=== PATIENT | male | born 1955 | race Two or more races ===

== ENCOUNTER 2017-06-03 18:55 | Inpatient (IN) | payer OTHER ==
[~2017-06-03] VITALS: Ht 193 cm; Wt 117.5 kg
[2017-06-03 19:56] VITALS: BP 107/72
[2017-06-03 20:00] VITALS: BP 107/76
[2017-06-03] MEDS ORDERED: PNEUMOCOCCAL VACC POLYS 25 MCG/0.5 ML VIAL IM ONE (21:00)
[2017-06-03] MEDS ORDERED: ONDANSETRON HCL 4 MG/2 ML VIAL IV PRN (21:30)
[2017-06-03] MEDS ORDERED: VANCOMYCIN PER PHARMACY 0 MG IV SCH (21:30)
[2017-06-03] MEDS ORDERED: HYDROcodone-ACET 5/325MG TAB PO PRN (21:30)
[2017-06-03] MEDS ORDERED: ACETAMINOPHEN 500 MG TAB PO PRN (21:30)
[2017-06-03 21:59] LABS: Basophils # (auto) 0.1 uL; Basophils % (auto) 1.4 % (0.0-2.0); Eosinophils # (auto) 0.3 uL; Eosinophils % (auto) 5.1 % (0.0-7.0); Hematocrit 42.4 % (41.0-53.0); Hemoglobin 14.6 g/dL (13.5-17.5); Lymphocytes # (auto) 1.8 uL; Lymphocytes % (auto) 34.5 % (10.0-50.0); Mean Corpuscular Hemoglobin 30.6 pg (28.0-32.0); Mean Corpuscular Hgb Conc. 34.5 g/dL (32.0-36.0); Mean Corpuscular Volume 88.6 fL (80.0-100.0); Mean Platelet Volume 9.1 fL (6.9-10.8); Monocytes # (auto) 0.5 uL; Monocytes % (auto) 10.5 % (0.0-12.0); Neutrophils # (auto) 2.5 uL; Neutrophils % (auto) 48.5 % (37.0-80.0); Nucleated Red Blood Cells % 0.1 %; Platelet Count (auto) 243 10^3/uL (140-450); Red Cell Distribution Width 14.4 % (11.8-14.3); White Blood Cell 5.2 10^3/uL (4.4-10.8)
[2017-06-03 22:00] VITALS: BP 107/76
[2017-06-03 22:10] LABS: Albumin 4.2 g/dL (3.4-5.0); BUN/Creatinine Ratio 14.4; Calcium 9.1 mg/dL (8.5-10.1); Potassium 4.5 mmol/L (3.5-5.1)
[2017-06-03 22:13] LABS: Bilirubin, Total 0.4 mg/dL (0.2-1.0); Total Protein 7.3 g/dL (6.4-8.2)
[2017-06-03] MEDS: FAMOTIDINE 20 MG TAB PO SCH (22:50)
[2017-06-03] MEDS: MORPHINE SULF INJ 2 MG/ML SYRINGE 1ML IV PRN (22:51)
[2017-06-03 23:20] LABS: INR 1.04 (0.9-1.15); Partial Thromboplastin Time 27.6 sec (22.64-33.71); Prothrombin Time 11.3 sec (9.37-12.3)
[2017-06-04 00:03] LABS: Urine Bilirubin Negative (Negative); Urine Blood Negative /uL (Negative); Urine Color Yellow (Yellow); Urine Glucose Normal (Normal); Urine Ketone Negative (Negative); Urine Mucus FEW (None Seen); Urine Nitrite Negative (Negative); Urine RBC 1 /hpf (0 - 3); Urine Urobilinogen Normal (Negative)
[2017-06-04] MEDS ORDERED: DEXTROSE (50%) 50ML SYRG IV PRN (00:30)
[2017-06-04] MEDS ORDERED: InsuLIN REG 1unit/0.01ml Soln (100units/ml) SC ONE (01:00)
[2017-06-04] MEDS ORDERED: ACCU-CHEK COMFORT CURVE STRIP VI ONE (01:00)
[2017-06-04] MEDS ORDERED: VANCOMYCIN 1,500 MG in D5W 5% 250 ML IV ONE (01:00)
[2017-06-04] MEDS: PIPERACILLIN-TAZOB 3.375GM 100 ML IV SCH ×3 (01:08→10:31)
[2017-06-04] MEDS: D5W/SOD CHLO 0.9% 1,000 ML IV SCH ×2 (01:08→05:30)
[2017-06-04] MEDS: NICOTINE 14 MG/24HR TOPICAL PATCH TD SCH ×3 (01:09→11:11)
[2017-06-04 05:00] VITALS: BP 95/59
[2017-06-04] MEDS: MORPHINE SULF INJ 2 MG/ML SYRINGE 1ML IV PRN ×2 (05:32→11:12)
[2017-06-04 08:29] VITALS: BP_SYST 117; BP_SYST 164; BP_DIAS 65; BP_DIAS 74
[2017-06-04] MEDS ORDERED: LIDOCAINE 1% HCL (LOCAL ANESTH.) INJ 20ML MDV ONE (08:53)
[2017-06-04] MEDS ORDERED: BUPIVACAINE 0.25% INJ 50ML VIAL ONE (08:53)
[2017-06-04 10:08] LABS: Albumin 3.9 g/dL (3.4-5.0); Bilirubin, Total 0.3 mg/dL (0.2-1.0); Calcium 8.4 mg/dL (8.5-10.1); Potassium 4.2 mmol/L (3.5-5.1); Total Protein 6.8 g/dL (6.4-8.2)
[2017-06-04] MEDS ORDERED: LACTATED RINGER'S 1,000 ML IV SCH ×2 (10:31→10:34)
[2017-06-04] MEDS: InsuLIN REG 1unit/0.01ml Soln (100units/ml) SC SCH ×2 (10:31→12:08)
[2017-06-04] MEDS: FAMOTIDINE 20 MG TAB PO SCH ×2 (10:31→11:10)
[2017-06-04] MEDS: ACCU-CHEK COMFORT CURVE STRIP VI SCH ×2 (10:31→11:14)
[2017-06-04] MEDS ORDERED: BISACODYL 5 MG EC TAB PO PRN (10:45)
[2017-06-04] MEDS ORDERED: METF-370 PO (12:26)
[2017-06-04] MEDS ORDERED: LISI10TA6 PO (12:26)
[2017-06-04] MEDS ORDERED: ALPR0.254 PO (12:26)
[2017-06-04] MEDS ORDERED: BACL10TA PO (12:26)
[2017-06-04] MEDS ORDERED: SIMV-8 PO (12:26)
[2017-06-04] MEDS ORDERED: FENT25DI2 TD (12:26)
[2017-06-04] MEDS ORDERED: HYDR-391 PO (12:26)
[2017-06-04] MEDS ORDERED: INSDRIP IV (12:26)
[2017-06-04] MEDS ORDERED: GABA-494 PO (12:26)
[2017-06-04] MEDS ORDERED: NAP500T PO (12:26)
[2017-06-04] MEDS ORDERED: TAMS0.4C36 PO (12:26)
[2017-06-04] MEDS ORDERED: SULF400T11 PO (12:31)
[2017-06-04] MEDS ORDERED: NIC21P TOP (12:33)
[2017-06-04 12:48] VITALS: BP 133/70
[2017-06-04] MEDS ORDERED: VANCOMYCIN 1,250 MG in D5W 5% 250 ML IV SCH (13:00)
== END 2017-06-04 14:15 | disposition home or self-care (01) | DRG 581 ==
LOC: TELE-WESTW 18:55 → WEST WING 20:40
PROVIDERS: ADMIT Hospitalist; ATTEND Hospitalist
PROC: 0JBK0ZZ Excision of Left Hand Subcutaneous Tissue and Fascia, Open Approach (ICD-10-PCS; 2017-06-04)
PROC: 0J9K0ZZ Drainage of Left Hand Subcutaneous Tissue and Fascia, Open Approach (ICD-10-PCS; 2017-06-04)
PROC: 0HBQXZZ Excision of Finger Nail, External Approach (ICD-10-PCS; principal; 2017-06-04 09:21)
DX: L03.012 Cellulitis of left finger (principal); I10 Essential (primary) hypertension; W01.118A Fall on same level from slipping, tripping and stumbling with subsequent striking against other sharp object, initial encounter; S60.152A Contusion of left little finger with damage to nail, initial encounter; E11.9 Type 2 diabetes mellitus without complications; E78.5 Hyperlipidemia, unspecified; S61.303A Unspecified open wound of left middle finger with damage to nail, initial encounter; S61.305A Unspecified open wound of left ring finger with damage to nail, initial encounter; F17.200 Nicotine dependence, unspecified, uncomplicated; Y93.01 Activity, walking, marching and hiking; M65.9 Synovitis and tenosynovitis, unspecified; Y92.89 Other specified places as the place of occurrence of the external cause; Y99.8 Other external cause status; Z82.49 Family history of ischemic heart disease and other diseases of the circulatory system; Z83.3 Family history of diabetes mellitus; Z23 Encounter for immunization; Z91.14 Patient's other noncompliance with medication regimen; Z71.6 Tobacco abuse counseling
CPT/HCPCS: 36415; 71010; 73130; 80053; 80061; 81001; 82962; 83036; 85025; 85610; 85652; 85730; 86141; J1815; J2001; J2543; J3490; J7042; J7060

== ENCOUNTER 2020-04-29 07:48 | Inpatient (IN) | payer OTHER, MEDICAID ==
[2020-04-29] VITALS (10 sets, daily range): BP systolic 100–133; BP diastolic 74–85
[~2020-04-29] VITALS: Ht 188 cm; Wt 125.5 kg
[~2020-04-29 07:48] MED LIST: GABA-339 PO; INSUINJ18 SC; LISI-706 PO; METF-372 PO; NAP500T PO; TAMS0.4C36 PO
[2020-04-29] MEDS ORDERED: CELECOXIB 100 MG CAP PO ONE (10:00)
[2020-04-29] MEDS ORDERED: PREGABALIN CAPSULE 75 MG CAP PO ONE (10:00)
[2020-04-29] MEDS ORDERED: ceFAZolin 1GM/50ML 50 ML IV ONE ×2 (10:00→10:44)
[2020-04-29] MEDS ORDERED: ACETAMINOPHEN IV 1000 MG/100ML (10MG/ML) IV ONE (10:00)
[2020-04-29] MEDS ORDERED: MORPHINE SULF(PF) 0.5MG/ML 10ML VIAL ONE ×2 (10:18→12:00)
[2020-04-29] MEDS ORDERED: ONDANSETRON HCL 4 MG/2 ML VIAL ONE (10:18)
[2020-04-29] MEDS ORDERED: fentaNYL CITRATE 100 MCG/2 ML VL ONE (10:18)
[2020-04-29] MEDS ORDERED: MIDAZOLAM HCL 1MG/1ML-2 ML VIAL ONE (10:18)
[2020-04-29] MEDS ORDERED: PROPOFOL 10 MG/ML 20 ML IV ONE (10:18)
[2020-04-29] MEDS ORDERED: SODIUM CHLORIDE LOCK 10 ML ONE (10:18)
[2020-04-29] MEDS ORDERED: TETRACAINE 1% INJ 2 ML VIAL IJ ONE (11:43)
[2020-04-29] MEDS ORDERED: KETOROLAC TROMETH 30 MG/ML 1ML VIAL ONE (11:51)
[2020-04-29] MEDS ORDERED: BUPIVACAINE 0.25% INJ 50ML VIAL ONE (11:58)
[2020-04-29] MEDS ORDERED: KETAMINE 50mg/ML 10ml Vial (500mg/10ml) IV ONE (12:00)
[2020-04-29] MEDS ORDERED: TRANEXAMIC ACID 20 ML ONE (12:03)
[2020-04-29] MEDS ORDERED: fentaNYL CITRATE 100 MCG/2 ML VL IV PRN (13:00)
[2020-04-29] MEDS ORDERED: METOCLOPRAMIDE HCL 5MG/ml INJ 2ml VIAL IV PRN (13:00)
[2020-04-29] MEDS ORDERED: diphenhdrAMINE HCL 50 MG/1 ML VL IV PRN (13:00)
[2020-04-29] MEDS ORDERED: MORPHINE SULFATE 4 MG/ML SYR/VIAL IV PRN (13:00)
[2020-04-29] MEDS ORDERED: ACCU-CHEK COMFORT CURVE STRIP VI ONE (13:00)
[2020-04-29] MEDS ORDERED: NALOXONE HCL 0.4 MG/ML VIAL IV PRN (13:00)
[2020-04-29] MEDS ORDERED: HYDROmorphone HCL 2 MG/ML VL IV PRN (13:00)
[2020-04-29] MEDS ORDERED: VANCOMYCIN HCL 1000 MG VL ONE (13:19)
[2020-04-29] MEDS: LACTATED RINGER'S 1,000 ML IV SCH (14:23)
[2020-04-29] MEDS ORDERED: NITROGLYCERIN 0.4 MG SL TAB SL PRN (14:30)
[2020-04-29] MEDS ORDERED: ONDANSETRON HCL 4 MG/2 ML VIAL IV PRN (14:30)
[2020-04-29] MEDS ORDERED: traMADol HCL 50 MG TAB PO PRN (14:30)
[2020-04-29] MEDS ORDERED: DEXTROSE (50%) 50ML SYRG IV PRN (14:30)
[2020-04-29] MEDS ORDERED: MORPHINE SULF INJ 2 MG/ML SYRINGE 1ML IV PRN (14:30)
[2020-04-29] MEDS ORDERED: INSULIN ASPART PROTAMINE SC PRN (14:30)
[2020-04-29] MEDS ORDERED: ASP SC PRN (14:30)
[2020-04-29] MEDS ORDERED: [UNRECOGNIZED DRUG - OTHER] SC PRN (14:30)
[2020-04-29] MEDS: InsuLIN REG 1unit/0.01ml Soln (100units/ml) SC SCH ×2 (16:00→20:39)
[2020-04-29] MEDS: ACCU-CHEK COMFORT CURVE STRIP VI SCH ×2 (16:00→20:39)
--- NOTE | 2020-04-29 16:01 | NUR ---
Telemetry admit from OR: GUANAKITO ALARCON admitted to Telemetry unit after SBAR received. Patient oriented to HECTOR ANDERSON, RN primary RN, unit, room, bed, and unit policies regarding patient care and visiting hours. Patient now on continuous telemetry monitoring, tele box # 49 and telemetry reading on arrival to unit is SB 53. Patient weighed by bedscale and encouraged to call if they need something. All questions and concerns addressed, patient verbalized understanding.
[2020-04-29] MEDS ORDERED: ACCU-CHEK COMFORT CURVE STRIP VI SCH (17:00)
[2020-04-29] MEDS: KETOROLAC TROMETH 30 MG/ML 1ML VIAL IV SCH (17:29)
[2020-04-29] MEDS: metFORMIN HYDROCHLORIDE 500 MG TAB PO SCH (17:29)
--- NOTE | 2020-04-29 18:51 | NUR ---
CLOSING NOTE: Patient resting in bed. No S/S of distress at this time. Bed alarm activated for patient safety.
--- NOTE | 2020-04-29 19:38 | NUR ---
Respiratory note: PT SEEN AND ASSESSED FOR ROUTINE PULSE OX CHECK: NO DISTRESS NOTED, PT WAS SLEEPING WHEN ENTERING THE ROOM. HR 67 RR 18 SP02 96% ON ROOM AIR.
--- NOTE | 2020-04-29 20:00 | NUR ---
Opening Shift Note Assumed care of patient, awake and alert, oriented x 4, follows direction. On room air with even and unlabored respirations, no S/S of distress or SOB. Patient is s/p total right knee replacement with tanisha bandage dressing clean, dry and intact. Castillo intact and draining to gravity. Bed in lowest locked position with side rails up x 2 and call light within reach. Instructed on POC and to call for assist PRN, will continue to monitor for changes Q1hr and PRN.
[2020-04-29] MEDS: OXYCODONE W/ ACETAMINOPHEN 5/325MG TABLET PO PRN (20:18)
[2020-04-29] MEDS: ceFAZolin 1GM 2 GM in D5W 5% 100 ML IV SCH (22:45)
[2020-04-29] MEDS: SODIUM CHLOR 0.9% PF (SALINE LOCK) 10ML VIAL/SYR IV SCH (22:45)
[2020-04-29] MEDS: DOCUSATE SOD 100 MG CAP PO SCH (22:46)
[2020-04-29] MEDS: GABAPENTIN 400 MG CAP PO SCH (22:46)
[2020-04-30] VITALS (11 sets, daily range): BP systolic 95–125; BP diastolic 53–79
[2020-04-30] MEDS: ACCU-CHEK COMFORT CURVE STRIP VI SCH ×7 (00:04→23:39)
[2020-04-30] MEDS: KETOROLAC TROMETH 30 MG/ML 1ML VIAL IV SCH ×5 (00:04→23:33)
[2020-04-30] MEDS: InsuLIN REG 1unit/0.01ml Soln (100units/ml) SC SCH ×7 (00:13→23:51)
[2020-04-30] MEDS: LACTATED RINGER'S 1,000 ML IV SCH ×3 (00:23→21:21)
[2020-04-30] MEDS: SODIUM CHLOR 0.9% PF (SALINE LOCK) 10ML VIAL/SYR IV SCH ×3 (05:36→22:00)
[2020-04-30] MEDS: ceFAZolin 1GM 2 GM in D5W 5% 100 ML IV SCH ×2 (05:56→13:40)
[2020-04-30] MEDS: GABAPENTIN 400 MG CAP PO SCH ×3 (05:57→23:32)
--- NOTE | 2020-04-30 06:18 | NUR ---
Mejia catheter dc'd Order to discontinue mejia catheter. Mejia dc'd with clean technique following deflation of balloon. Patient tolerated well with no complaints of pain. Will continue care.
[2020-04-30 06:53] LABS: Hematocrit 37.9 % (41.0-53.0); Hemoglobin 12.7 g/dL (13.5-17.5)
--- NOTE | 2020-04-30 06:56 | NUR ---
Closing note status unchanged. patient resting in bed with even and unlabored respirations, no s/s of distress. On continuous pulse ox and q1hr BP. Delroy bandage to right knee clean, dry and intact. Bed in lowest locked position with side rails up x 2 and call light within reach.
[2020-04-30 07:04] LABS: Potassium 4.2 mmol/L (3.5-5.1)
[2020-04-30 07:15] LABS: Albumin 3.1 g/dL (3.4-5.0); BUN/Creatinine Ratio 17.8; Bilirubin, Total 0.3 mg/dL (0.2-1.0); Calcium 8.4 mg/dL (8.5-10.1); Total Protein 6.1 g/dL (6.4-8.2)
--- NOTE | 2020-04-30 07:25 | NUR ---
Opening Shift Note Assumed care of patient, awake and alert. Respirations are even and unlabored on room air. No S/S of distress or SOB. Patient is s/p total right knee replacement with tanisha bandage dressing clean, dry and intact. Patient updated on POC and instructed to call for assistance as needed, patient verbalized understanding. Bed locked in lowest position, side rails up x 2, call light within reach. Will continue to monitor for changes Q1hr and PRN.
[2020-04-30] MEDS: OXYCODONE W/ ACETAMINOPHEN 5/325MG TABLET PO PRN ×3 (08:08→13:40)
[2020-04-30] MEDS: TAMSULOSIN HYDROCHLORIDE 0.4 MG CAP PO SCH (08:08)
[2020-04-30] MEDS: metFORMIN HYDROCHLORIDE 500 MG TAB PO SCH ×2 (08:08→18:18)
[2020-04-30] MEDS: DOCUSATE SOD 100 MG CAP PO SCH ×2 (09:36→22:00)
[2020-04-30] MEDS: ENOXAPARIN SOD 40 MG/0.4 ML SYRINGE SC SCH (09:36)
[2020-04-30] MEDS: LISINOPRIL 20 MG TAB PO SCH (09:39)
[2020-04-30] MEDS: HCTZ 25 MG TAB PO SCH (09:39)
--- NOTE | 2020-04-30 09:45 | NUR ---
Respiratory note: PT SEEN AND ASSESSED FOR ROUTINE PULSE OX CHECK: NO DISTRESS NOTED, PT WAS SLEEPING WHEN ENTERING THE ROOM. HR 67 RR 18 SP02 94% ON ROOM AIR.
[2020-04-30] MEDS: HYDROmorphone HCL 2 MG/ML VL IV PRN ×2 (16:25→18:21)
--- NOTE | 2020-04-30 19:30 | NUR ---
Opening Shift Note Assumed care of patient, awake and alert. PCM in progress; pt states he has increased more than surgeon said and he walkied more than PT told him. This RN cautioned him not to overdo, because it can easily cause more pain and setback instead of faster healing. PT VU and took the PCM off himself at the end of 2 hours. He states the MD said two hours at a time with 8 hours out of 24. No S/S of distress or SOB. Pt also states that prev pain med did nothing. Insructed on POC and to call for assist PRN, will continue to monitor for changes Q1hr and PRN. Bed low and HOB in Leary's position. Call light at pt's side.
--- NOTE | 2020-04-30 19:42 | NUR ---
PT IS DECLINING TO HAVE CONTINUOUS POX MONITORING. SPOT CHECK DONE, NO DISTRESS NOTED. Addendum: 04/30/20 at 1943 by SANTA ANAYA RT Amended: Links added.
--- NOTE | 2020-04-30 20:12 | NUR ---
Pt wheeling self downstairs to go smoke. This RN explained to pt risks of smoking; pt VU and signed AMA form. Tele room notified that pt will be outside smoking.
[2020-05-01] MEDS: HYDROmorphone HCL 2 MG/ML VL IV PRN ×6 (00:57→20:20)
--- NOTE | 2020-05-01 00:59 | NUR ---
Dilaudid 1mg given IVP after RN entered pt's room having heard him grunting and groaning. Pt had approx 1/2 of tanisha wrap undone holding it in his hand sitting on side of bed. He stated he thought it was too tight as pain continued after [ketorolac and diphenhydramin]. Pt had also c/o itching, so diphenhydramine was given @ 0009. Again this RN coaching pt in breathing slowly and evenly, not holding breath. RN had explained prev that holding one's breath exacerbates whatever sensation pt is having. This and distraction with stories of his and his son's adventures had been successful in decreasing pain. Pt relates that he has been unable to get off daily percocets due to chronic back pain. Patient may, therefore, require more pain med for this recuperation period.
--- NOTE | 2020-05-01 01:20 | NUR ---
Pt sleeping soundly. Respirations even. HR low 90s.
[2020-05-01] MEDS: OXYCODONE W/ ACETAMINOPHEN 5/325MG TABLET PO PRN ×4 (03:44→19:05)
--- NOTE | 2020-05-01 03:44 | NUR ---
Percocet i po give for c/o returned pain 10/10 upon awakening. No other s/sx of distress.
[2020-05-01] MEDS: ACCU-CHEK COMFORT CURVE STRIP VI SCH ×6 (03:51→22:24)
[2020-05-01] MEDS: InsuLIN REG 1unit/0.01ml Soln (100units/ml) SC SCH ×6 (03:57→22:27)
[2020-05-01 05:00] VITALS: BP 124/70
[2020-05-01] MEDS: GABAPENTIN 400 MG CAP PO SCH ×3 (05:09→22:11)
[2020-05-01] MEDS: SODIUM CHLOR 0.9% PF (SALINE LOCK) 10ML VIAL/SYR IV SCH ×3 (05:11→20:17)
[2020-05-01 06:45] LABS: Hematocrit 36.2 % (41.0-53.0); Hemoglobin 12.2 g/dL (13.5-17.5)
[2020-05-01] MEDS: LACTATED RINGER'S 1,000 ML IV SCH (07:33)
--- NOTE | 2020-05-01 07:35 | NUR ---
Opening Shift Note Assumed care of patient, awake and alert. No S/S of distress/SOB, patient reports right knee pain of 10/10 will medicate per MD orders. Updated on POC and instructed to call for assistance PRN, patient verbalized understanding. Bed locked in lowest position, side rails up x2, call light within reach. Will continue to monitor for changes Q1hr and PRN.
[2020-05-01 08:00] VITALS: BP 122/74
[2020-05-01] MEDS: metFORMIN HYDROCHLORIDE 500 MG TAB PO SCH ×2 (08:11→17:29)
[2020-05-01] MEDS: TAMSULOSIN HYDROCHLORIDE 0.4 MG CAP PO SCH (08:11)
[2020-05-01] MEDS: ENOXAPARIN SOD 40 MG/0.4 ML SYRINGE SC SCH (08:18)
[2020-05-01] MEDS: DOCUSATE SOD 100 MG CAP PO SCH ×2 (08:18→17:29)
[2020-05-01] MEDS: HCTZ 25 MG TAB PO SCH (08:19)
[2020-05-01] MEDS: LISINOPRIL 20 MG TAB PO SCH (08:19)
[2020-05-01 11:50] VITALS: BP 138/88
[2020-05-01 17:00] VITALS: BP 98/70
--- NOTE | 2020-05-01 17:25 | NUR ---
IV removal IV DC'd with clean sterile technique, catheter fully intact. Pressure dressing applied to site. Patient tolerated well. NOTE: [iv not working, will not flush]
--- NOTE | 2020-05-01 19:30 | NUR ---
Opening Shift Note Assumed care of patient, awake and alert. No S/S of distress/SOB or pain. Instructed on POC and to call for assist PRN. RN will continue to monitor for changes Q1hr and PRN. Bed low with HOB elevated less than 30 percent. Nurse call light within pt's reach.
[2020-05-01 22:00] VITALS: BP 135/98
[2020-05-02] MEDS: SODIUM CHLOR 0.9% PF (SALINE LOCK) 10ML VIAL/SYR IV SCH (00:17)
[2020-05-02] MEDS: HYDROmorphone HCL 2 MG/ML VL IV PRN ×4 (00:19→12:42)
--- NOTE | 2020-05-02 02:14 | NUR ---
Pt sleeping, lightly snoring.
[2020-05-02 05:00] VITALS: BP 116/72
[2020-05-02] MEDS: GABAPENTIN 400 MG CAP PO SCH (05:43)
[2020-05-02] MEDS: ACCU-CHEK COMFORT CURVE STRIP VI SCH ×2 (06:15→11:30)
[2020-05-02] MEDS: InsuLIN REG 1unit/0.01ml Soln (100units/ml) SC SCH ×2 (06:28→12:46)
[2020-05-02 06:56] LABS: Hematocrit 36.5 % (41.0-53.0); Hemoglobin 12.1 g/dL (13.5-17.5)
--- NOTE | 2020-05-02 07:30 | NUR ---
RECEIVED REPORT FROM ELSIE MELTON RN, JENNY. PATIENT ALERT AND ORIENTED X4. DENIES SOB, NO S/S DISTRESS NOTED. REPORTS 10/10 PAIN ON RT SURGICAL LEG. WILL MEDICATE ACCORDING TO eMAR. PLAN OF CARE DISCUSSED. BED IN LOCKED AND LOWEST POSITION. CALL LIGHT AND PHONE WITHIN REACH. WILL CONTINUE TO MONITOR Q1HR AND PRN.
[2020-05-02 08:00] VITALS: BP 115/86
[2020-05-02] MEDS: metFORMIN HYDROCHLORIDE 500 MG TAB PO SCH (09:02)
[2020-05-02] MEDS: TAMSULOSIN HYDROCHLORIDE 0.4 MG CAP PO SCH (09:03)
[2020-05-02] MEDS: ENOXAPARIN SOD 40 MG/0.4 ML SYRINGE SC SCH (09:04)
[2020-05-02] MEDS: LISINOPRIL 20 MG TAB PO SCH (09:05)
[2020-05-02] MEDS: DOCUSATE SOD 100 MG CAP PO SCH (09:05)
[2020-05-02] MEDS: HCTZ 25 MG TAB PO SCH (09:06)
[2020-05-02 11:04] VITALS: BP 115/86
--- NOTE | 2020-05-02 11:19 | NUR ---
Assessment Patient is a 64-year-old male who is alert and oriented. Prior to admission patient lived home alone and functioned independently. Per patient he can care for his own ADLs. Per patient he does not have any medical equipment. Per patient he borrowed a walker from a friend for the mean time. Per patient he will return home to his prior living arrangements post discharge and his friend will transport home. Advised patient there is a social service consult for home health physical therapy, walker and 3 in 1 commode. Per patient he would like the walker and 3 in 1 commode to be deliver to home. Informed patient clinical information will be faxed to [facility] and . Informed patient he has the right to speak to a social media campaign manager regarding all care. Informed patient he has the right to participate in all discharge planning. Patient verbalized understanding and agreed to discharge plan. Faxed clinical information to [email or web address], requesting DME to be deliver to home and [facility] requesting for authorization. Per Mayte with [facility] patient has been accepted and service to start within 24-48hrs. Placed called to KACY Munoz with [facility] advising her patient has orders for home health and DME. Per KACY Munoz they will authorized [facility] and [facility]. Informed SHRUTI Lyman. Addendum: 05/02/20 at 1133 by NAYA BROWN Amended: Links added.
[2020-05-02 12:00] VITALS: BP 103/64
--- NOTE | 2020-05-02 13:35 | NUR ---
PATIENT DISCHARGED PER MD'S ORDER. DISCHARGE SUMMARY AND FOLLOW UP INSTRUCTIONS PROVIDED TO PATIENT, PATIENT AWARE THAT WALKER AND 3 IN 1 COMMODE WILL BE DELIVERED AT HOME PER WATCH REPAIR TECHNICIANNAYA. [facility] FOR PT TO START 24-48 HOURS UPON DISCHARGE.PATIENT ALSO DISCHARGED WITH PCM MACHINE AND VERBALIZED UNDERSTANDING OF HOW TO USE IT. IV DISCONTINUES AND TELE BOX RETURNED TO ICU.
== END 2020-05-02 13:35 | disposition home or self-care (01) | DRG 470 ==
LOC: OVERFLOW 10:11 → EDSTATUS 11:30 → WEST WING 16:08 → TELE-WESTW 16:11
PROVIDERS: ADMIT Orthopaedic Surgery; ATTEND Orthopaedic Surgery
PROC: 0SRC0J9 Replacement of Right Knee Joint with Synthetic Substitute, Cemented, Open Approach (ICD-10-PCS; principal; 2020-04-30)
DX: M17.11 Unilateral primary osteoarthritis, right knee (principal); N40.0 Benign prostatic hyperplasia without lower urinary tract symptoms; Z20.828 Contact with and (suspected) exposure to other viral communicable diseases; I25.10 Atherosclerotic heart disease of native coronary artery without angina pectoris; G47.33 Obstructive sleep apnea (adult) (pediatric); J44.9 Chronic obstructive pulmonary disease, unspecified; N18.2 Chronic kidney disease, stage 2 (mild); G89.29 Other chronic pain; E11.42 Type 2 diabetes mellitus with diabetic polyneuropathy; I12.9 Hypertensive chronic kidney disease with stage 1 through stage 4 chronic kidney disease, or unspecified chronic kidney disease; E11.22 Type 2 diabetes mellitus with diabetic chronic kidney disease; Z83.3 Family history of diabetes mellitus; Z82.49 Family history of ischemic heart disease and other diseases of the circulatory system; Z79.899 Other long term (current) drug therapy; Z01.812 Encounter for preprocedural laboratory examination
CPT/HCPCS: 36415; 73560; 80053; 82962; 85014; 85018; 86850; 86900; 86901; 94762; 97110; 97116; 97163; 97530; C1713; G0378; J0131; J0690; J1815; J1885; J2250; J2405; J2704; J3490; J7060

== ENCOUNTER 2024-10-15 07:19 | Emergency (ER) | payer OTHER, MEDICAID ==
[~2024-10-15] VITALS: Ht 190.5 cm; Wt 113.9 kg
[~2024-10-15 07:19] MED LIST changes: +ATOR20TA50 PO; +BUSP5TAB51 PO; +CARV6.2551 PO; +FURO40TA4 PO; -LISI-706 PO; +LOS25T PO; -TAMS0.4C36 PO; +TAMS0.4C39 PO
--- NOTE | 2024-10-15 07:30 | ED.PDOC ---
SOB-HPI HPI Comments 69 year old male presents to the ED with chief complaint of SOB. Patient reports that he has been experiencing intermittent SOB with associated chills for one month, worsening over time. Patient relays that he had similar symptoms 8 months ago and needed fluid drained from his lungs. Patient denies any cough, fever, chest pain, headache, dizziness, or N/V. Time Seen by MD: 07:28 Reviewed notes: Nurses Notes, Medications, Allergies Information Source: Patient Mode of Arrival: Ambulatory Severity: Moderate Timing: Months Duration: Intermittent Context: At Rest PE Risk Factors: None History of: Anxiety Modifying Factors: Laying flat Associated Signs and Symptoms: None Past Medical History PAST MEDICAL HISTORY: Anxiety, CHF, DM, High Lipids, HTN Surgical History (Other): Bilateral knee surgery Family History Family History: Reviewed,noncontributory to illness, Family hx of heart milly Social History Smoker: Cigarettes Alcohol: Denies ETOH Use Drugs: Marijuana Lives In: Home Constitutional: reports: chills; denies: diaphoresis, fatigue, fever, malaise, sweats, weakness, others EENTM: denies: blurred vision, double vision, ear bleeding, ear discharge, ear drainage, ear pain, ear ringing, eye pain, eye redness, hearing loss, mouth pain, mouth swelling, nasal discharge, nose bleeding, nose congestion, nose pain, photophobia, tearing, throat pain, throat swelling, voice changes, others Respiratory: reports: shortness of breath; denies: cough, hemoptysis, orthopnea, SOB at rest, SOB with excertion, stridor, wheezing, others Cardiovascular: denies: chest pain, dizzy spells, diaphoresis, Dyspnea on exertion, edema, irregular heart beat, left arm pain, lightheadedness, palpitations, PND, syncope, others Gastrointestinal: denies: abdomen distended, abdominal pain, blood streaked bowels, constipated, diarrhea, dysphagia, difficulty swallowing, hematemesis, melena, nausea, poor appetite, poor fluid intake, rectal bleeding, rectal pain, vomiting, others Genitourinary: denies: burning, dysuria, flank pain, frequency, hematuria, incontinence, penile discharge, penile sore, pain, testicle pain, testicle swelling, urgency, others Neurological: denies: dizziness, fainting, headache, left sided numbness, left sided weakness, numbness, paresthesia, pre-existing deficit, right sided numbness, right sided weakness, seizure, speech problems, tingling, tremors, weakness, others Musculoskeletal: denies: back pain, gout, joint pain, joint swelling, muscle pain, muscle stiffness, neck pain, others Integumetry: denies: bruises, change in color, change in hair/nails, dryness, laceration, lesions, lumps, rash, wounds, others Allergic/Immunocompromised: denies: Difficulty Healing, Frequent Infections, Hives, Itching, others Hematologic/Lymphatic: denies: anemia, blood clots, easy bleeding, easy bruising, swollen glands, others Endocrine: denies: excessive hunger, excessive sweating, excessive thirst, excessive urination, flushing, intolerance to cold, intolerance to heat, unexplained weight gain, unexplained weight loss, others Psychiatric: denies: anxiety, bipolar disorder, depression, hopeless, panic disorder, schizophrenia, sleepless, suicidal, others All Other Systems: Reviewed and Negative Physical Exam General Appearance: Moderate Distress, Normal HEENT: Normal ENT Inspection, PERRL/EOMI Neck: Full Range of Motion, Non-Tender, Normal, Normal Inspection Respiratory: Chest Non-Tender, No Accessory Muscle Use, No Respiratory Distress, Other (Coarse breath sounds) Cardiovascular: No Edema, No JVD, No Murmur, No Gallop, Normal Peripheral Pulses, Regular Rate/Rhythm Breast Exam: Deferred Gastrointestinal: No Organomegaly, Non Tender, No Pulsatile Mass, Normal Bowel Sounds, Soft Genitalia: Deferred Pelvic: Deferred Rectal: Deferred Extremities: No calf tenderness, Normal capillary refill, Normal inspection, Normal range of motion, Non-tender, No pedal edema Musculoskeletal : Apperance: Normal Neurologic: Alert, medical technologist clinical II-XII nml as Tested, No Motor Deficits, Normal Affect, Normal Mood, No Sensory Deficits Cerebellar Function: Normal Reflexes: Normal Skin: Dry, Normal Color, Warm Peripheral Pulses: 3+ Radial (R), 3+ Radial (L) Lymphatic: No Adenopathy Was a procedure done? Was a procedure done?: No Differential Dx Differential Diagnosis: Anxiety, Asthma, Bronchitis, CHF, COPD X-Ray, Labs, Meds, VS Vital Signs Date Time Temp Pulse Resp B/P (MAP) Pulse Ox O2 Delivery O2 Flow Rate FiO2 10/15/24 09:45 96 16 108/80 (89) 95 10/15/24 08:20 Room Air* 0 21 10/15/24 07:56 97.7 101 18 108/69 (82) 96 97.7 10/15/24 07:56 101 18 96 Room Air 10/15/24 07:33 102 10/15/24 07:25 97.4 109 24 117/70 (86) 96 Lab Test 10/15/24 07:36 Range/Units White Blood Count 6.0 4.4-10.8 10^3/uL Red Blood Count 4.58 4.5-5.90 10^6/uL Hemoglobin 12.9 L 13.5-17.5 g/dL Hematocrit 39.2 L 41.0-53.0 % Mean Corpuscular Volume 85.6 80.0-100.0 fL Mean Corpuscular Hemoglobin 28.1 28.0-32.0 pg Mean Corpuscular Hemoglobin Concent 32.8 32.0-36.0 g/dL Red Cell Distribution Width 16.0 H 11.8-14.3 % Platelet Count 236 140-450 10^3/uL Mean Platelet Volume 8.6 6.9-10.8 fL Neutrophils (%) (Auto) 62.0 37.0-80.0 % Lymphocytes (%) (Auto) 23.4 10.0-50.0 % Monocytes (%) (Auto) 9.4 0.0-12.0 % Eosinophils (%) (Auto) 4.1 0.0-7.0 % Basophils (%) (Auto) 1.1 0.0-2.0 % Neutrophils # (Auto) 3.7 1.6-8.6 10 ^3/uL Lymphocytes # (Auto) 1.4 0.4-5.4 10 ^3/uL Monocytes # (Auto) 0.6 0-1.3 10 ^3/uL Eosinophils # (Auto) 0.2 0-0.8 10 ^3/uL Basophils # (Auto) 0.1 0-0.2 10 ^3/uL Nucleated Red Blood Cells 0.1 % Sodium Level 141 136-145 mmol/L Potassium Level 3.8 3.5-5.1 mmol/L Chloride Level 103 98-107 mmol/L Carbon Dioxide Level 27 20-31 mmol/L Anion Gap 11 5-15 Blood Urea Nitrogen 24 H 9-23 mg/dL Creatinine 1.37 H 0.700-1.30 mg/dL Glomerular Filtration Rate Calc 57 >90 mL/min BUN/Creatinine Ratio 17.5 10.0-20.0 Serum Glucose 145 H 74-106 mg/dL Calcium Level 9.7 8.7-10.4 mg/dL Troponin I High Sensitivity 74 *H </=54 ng/L B-Type Natriuretic Peptide 634.36 0-100 pg/mL Current Medications Medications (Trade) Dose Ordered Sig/Clay Route Start Time Stop Time Status Last Admin Methylprednisolone Sodium Succinate (Solu Medrol) 125 mg ONCE ONCE IV 10/15/24 07:30 10/15/24 07:31 DC 10/15/24 08:12 Patient alert. Complaining of shortness a breath. Continues to smoke cigarettes. Vitals stable. Answering all questions. Counseled patient on effects of smoking cigarettes for 15 minutes. EKG reviewed does not show any acute changes. Possibly will need echocardiogram. Reviewed his previous visit. Explained to the patient. Continue cardiac monitoring. Time of 1ST Reevaluation: 08:28 Reevaluation 1ST: Unchanged Patient Education/Counseling: Diagnosis, Treatment Family Education/Counseling: No Family Present Departure 1 Departure Time of Disposition: 07:42 Impression: Primary Impression: COPD exacerbation Additional Impressions: Pneumonitis Diastolic heart failure Qualified Codes: I50.33 - Acute on chronic diastolic (congestive) heart failure Disposition: ADMITTED INPATIENT Admit to: Med Surg Condition: Guarded Critical Care Note Critical Care Time?: No Stability Stability form required: No Heart Score Heart Score: Heart Score Response (Comments) Value History Moderate Suspicious 1 EKG Normal 0 Age >65 2 Risk Factors >3 or Hx ASHD 2 Troponin Normal limit 0 Total 5 I personally scribed for ERIN RIBERA MD ([email or web address]) on 10/15/24 at 07:30. Electronically submitted by Octaviano Mann ([email or web address]). ERIN RIBERA MD Oct 15, 2024 07:30
[2024-10-15] MEDS ORDERED: FENT25DI2 TD (07:42)
[2024-10-15] MEDS ORDERED: BACL20TA PO (07:42)
[2024-10-15] MEDS ORDERED: CLON0.1T PO (07:42)
[2024-10-15 07:47] LABS: Basophils # (auto) 0.1 10 ^3/uL (0-0.2); Basophils % (auto) 1.1 % (0.0-2.0); Eosinophils # (auto) 0.2 10 ^3/uL (0-0.8); Eosinophils % (auto) 4.1 % (0.0-7.0); Hematocrit 39.2 % (41.0-53.0); Hemoglobin 12.9 g/dL (13.5-17.5); Lymphocytes # (auto) 1.4 10 ^3/uL (0.4-5.4); Lymphocytes % (auto) 23.4 % (10.0-50.0); Mean Corpuscular Hemoglobin 28.1 pg (28.0-32.0); Mean Corpuscular Hgb Conc. 32.8 g/dL (32.0-36.0); Mean Corpuscular Volume 85.6 fL (80.0-100.0); Monocytes # (auto) 0.6 10 ^3/uL (0-1.3); Monocytes % (auto) 9.4 % (0.0-12.0); Neutrophils # (auto) 3.7 10 ^3/uL (1.6-8.6); Nucleated Red Blood Cells % 0.1 %; Platelet Count (auto) 236 10^3/uL (140-450); Red Blood Cells 4.58 10^6/uL (4.5-5.90)
[2024-10-15 07:56] VITALS: TEMP 97.7
[2024-10-15 08:02] LABS: Chloride 103 mmol/L (98-107); Potassium 3.8 mmol/L (3.5-5.1); Sodium 141 mmol/L (136-145)
[2024-10-15 08:03] LABS: Anion Gap 11 (5-15); Carbon Dioxide 27 mmol/L (20-31)
[2024-10-15 08:04] LABS: Calcium 9.7 mg/dL (8.7-10.4)
[2024-10-15 08:09] LABS: BUN/Creatinine Ratio 17.5 (10.0-20.0)
[2024-10-15] MEDS: methylPREDNISolone SOD SUCC 125 MG/2 ML VL IV ONE (08:12)
[2024-10-15 08:21] LABS: Blood Urea Nitrogen 24 mg/dL (9-23); Glucose 145 mg/dL (74-106)
--- NOTE | 2024-10-15 09:24 | DVH ---
CLINICAL INFORMATION: 69 years old, Male; shortness of breath. TECHNIQUE: 2 AP portable chest radiographs were obtained. COMPARISON: XY CHEST PORTABLE on DOS: 12/17/23, XY CHEST PORTABLE on DOS: 12/16/23 FINDINGS: Lungs: Clear. No focal consolidation. No pneumothorax or pleural effusion. Cardiac: Heart size is within normal limits. Pulmonary vasculature: Unremarkable. Mediastinum/lorie: Unremarkable. Bones: No acute osseous abnormality identified. Other: No other significant findings. IMPRESSION: No evidence of acute disease in the chest.
[2024-10-15 12:16] VITALS: BP 91/67; PULSE 106; RESP 22; O2SAT 95
--- NOTE | 2024-10-15 19:27 | DVHINCON2 ---
Date Seen: Oct 15, 2024 Referring Physician ER physician. Reason for Consultation Shortness of breaths with COPD exacerbation. History of Present Illness 69 year old male presents to the ED with chief complaint of SOB. Patient reports that he has been experiencing intermittent SOB with associated chills for one month, worsening over time. Patient does have known history of congestive heart failure with diastolic dysfunction. Patient was given breathing treatment was recommended to be admitted. Patient eloped from the ER. Past Medical History Diabetes mellitus type 2 Hypertension Dyslipidemia Anxiety disorder COPD Past Surgical History Bilateral knee surgeries. Family History: Cardiovascular disease G8 FATHER Diabetes mellitus G8 MOTHER FH: myocardial infarction G8 FATHER Allergies: Coded Allergies: NO KNOWN ALLERGIES (Unverified , 04/24/20) Home Meds Active Scripts Carvedilol (Carvedilol) 6.25 Mg Tab, 1 TAB PO BID, #60 TAB 1 Refill Prov:MERVIN HINOJOSA MD 12/18/23 Furosemide (Furosemide) 40 Mg Tab, 1 TAB PO BID, #60 TAB 2 Refills Prov:MERVIN HINOJOSA MD 12/18/23 Losartan Potassium (Losartan Potassium) 25 Mg Tab, 25 MG PO QPM, #60 TAB Prov:MERVIN HINOJOSA MD 12/18/23 Atorvastatin Calcium (ATORVASTATIN CALCIUM) 20 Mg Tab, 20 MG PO HS, #60 TAB Prov:MERVIN HINOJOSA MD 12/18/23 Reported Medications Fentanyl (Fentanyl) 25 Mcg/Hr Dis, 25 MCG TD, DIS 10/15/24 Clonidine Hydrochloride (Clonidine Hcl) 0.1 Mg Tab, 0.1 MG PO BID, TAB 10/15/24 Baclofen (Baclofen) 20 Mg Tab, 1 TAB PO TID, #90 TAB 2 Refills 10/15/24 Buspirone Hcl (Buspirone Hcl) 5 Mg Tab, 5 MG PO Q12HR for 30 Days, MG 12/17/23 Metformin Hydrochloride (Metformin Hcl) 1,000 Mg Tab, 1 TAB PO BID, #60 TAB 5 Refills 04/24/20 Gabapentin (Gabapentin) 600 Mg Tab, 2 TAB PO TID for 30 Days, MG 04/24/20 Insulin Aspart Protamine & Asp (Novolog Mix 70/30 Prefill (70-30) 100 Unit/ml) 1 Inj Inj, 1 INJ SC UD PRN for PER SLIDING SCALE, INJ 04/24/20 Naproxen (NAPROSYN TABLET) 500 Mg Tb, 1 TAB PO BID, #60 TAB 1 Refill 06/04/17 Tamsulosin Hcl (Tamsulosin Hcl) 0.4 Mg Cap, 0.4 MG PO DAILY@BREAKFAST for 30 Days, MG 06/04/17 Vital Signs Vital Signs Date Time Temp Pulse Resp B/P (MAP) Pulse Ox O2 Delivery O2 Flow Rate FiO2 10/15/24 12:16 106 22 91/67 (75) 95 10/15/24 08:20 Room Air* 0 21 10/15/24 07:56 97.7 97.7 Labs/Diagnostic Data Labs Test 10/15/24 07:36 Range/Units White Blood Count 6.0 4.4-10.8 10^3/uL Red Blood Count 4.58 4.5-5.90 10^6/uL Hemoglobin 12.9 L 13.5-17.5 g/dL Hematocrit 39.2 L 41.0-53.0 % Mean Corpuscular Volume 85.6 80.0-100.0 fL Mean Corpuscular Hemoglobin 28.1 28.0-32.0 pg Mean Corpuscular Hemoglobin Concent 32.8 32.0-36.0 g/dL Red Cell Distribution Width 16.0 H 11.8-14.3 % Platelet Count 236 140-450 10^3/uL Mean Platelet Volume 8.6 6.9-10.8 fL Neutrophils (%) (Auto) 62.0 37.0-80.0 % Lymphocytes (%) (Auto) 23.4 10.0-50.0 % Monocytes (%) (Auto) 9.4 0.0-12.0 % Eosinophils (%) (Auto) 4.1 0.0-7.0 % Basophils (%) (Auto) 1.1 0.0-2.0 % Neutrophils # (Auto) 3.7 1.6-8.6 10 ^3/uL Lymphocytes # (Auto) 1.4 0.4-5.4 10 ^3/uL Monocytes # (Auto) 0.6 0-1.3 10 ^3/uL Eosinophils # (Auto) 0.2 0-0.8 10 ^3/uL Basophils # (Auto) 0.1 0-0.2 10 ^3/uL Nucleated Red Blood Cells 0.1 % Sodium Level 141 136-145 mmol/L Potassium Level 3.8 3.5-5.1 mmol/L Chloride Level 103 98-107 mmol/L Carbon Dioxide Level 27 20-31 mmol/L Anion Gap 11 5-15 Blood Urea Nitrogen 24 H 9-23 mg/dL Creatinine 1.37 H 0.700-1.30 mg/dL Glomerular Filtration Rate Calc 57 >90 mL/min BUN/Creatinine Ratio 17.5 10.0-20.0 Serum Glucose 145 H 74-106 mg/dL Calcium Level 9.7 8.7-10.4 mg/dL Troponin I High Sensitivity 74 *H </=54 ng/L B-Type Natriuretic Peptide 634.36 0-100 pg/mL Assessment 72-year-old male with a known history of diabetes mellitus type 2, hypertension, dyslipidemia, anxiety disorder initially planned to the hospital with shortness breath found to have acute COPD exacerbation. Patient recommended to be admitted. The patient eloped from the ER. Problems(with codes): (1) COPD exacerbation (2) Diastolic heart failure Plan discussed with: Other Date of Service: Oct 15, 2024 Billing Provider: JOURDAN THOMAS MD Common Visit Codes: NOT BILLABLE JOURDAN THOMAS MD Oct 15, 2024 19:27
--- NOTE | 2024-10-19 07:10 | ECG ---
[facility] Test Date: 2024-10-15 Test Time: 07:33:45 Pat Name: GUANAKITO ALARCON Department: ER Room: Gender: M Temporary Help Agency Referral Clerk: : 1955 Requested By: ERIN RIBERA Order Number: [id number] Reading MD: Cordell Jay Measurements Intervals [place] Rate: 102 P: 77 WV: 156 QRS: 65 QRSD: 96 T: 266 QT: 367 QTc: 479 Interpretive Statements Sinus tachycardia Borderline repolarization abnormality Borderline prolonged QT interval Electronically Signed On 10-19-2024 9:35:16 PST by Cordell Jay Please click the below link to view image of tracing.
== END 2024-10-15 12:38 | disposition left against medical advice (07) ==
LOC: ER 07:19
DX: J44.1 Chronic obstructive pulmonary disease with (acute) exacerbation (principal); J98.4 Other disorders of lung; I50.33 Acute on chronic diastolic (congestive) heart failure; F41.9 Anxiety disorder, unspecified; E11.9 Type 2 diabetes mellitus without complications; E78.5 Hyperlipidemia, unspecified; F17.210 Nicotine dependence, cigarettes, uncomplicated; I11.0 Hypertensive heart disease with heart failure; Z98.890 Other specified postprocedural states; Z71.6 Tobacco abuse counseling
CPT/HCPCS: 36415; 71045; 80048; 82947; 83880; 84484; 85025; 93005; 96374; 99285; J2919

== ENCOUNTER 2024-11-26 14:49 | Inpatient (IN) | payer OTHER, MEDICAID ==
[~2024-11-26] VITALS: Ht 188 cm; Wt 141.8 kg
[~2024-11-26 14:49] MED LIST changes: +BACL20TA PO; +CLON0.1T PO; +FENT25DI2 TD
--- NOTE | 2024-11-26 14:59 | ECG ---
[facility] Test Date: 2024-11-26 Test Time: 14:54:48 Pat Name: GUANAKITO ALARCON Department: ER Room: [address] [place] [address] Gender: M Marketing Services Coordinator: CLAUDIO : 1955 Requested By: GEN VILLEGAS Order Number: [id number] Reading MD: Cordell Jay Measurements Intervals [place] Rate: 103 P: 72 ID: [id number] QRS: 84 QRSD: 95 T: -86 QT: 378 QTc: 495 Interpretive Statements Sinus tachycardia Multiform ventricular premature complexes Low voltage with right axis deviation Borderline repolarization abnormality Borderline prolonged QT interval Baseline wander in lead(s) I,II,aVR Electronically Signed On 11-26-2024 19:23:05 PDT by Cordell Jay Please click the below link to view image of tracing.
--- NOTE | 2024-11-26 15:18 | ED.PDOC ---
SOB-HPI HPI Comments 69 year old male brought in by EMS presents to the ED with a chief complaint of shortness of breath onset 2 months. Per EMS, patient has been experiencing intermittent shortness of breath for the past 2 months, last 3 weeks has noticed abdominal distention as well as bilateral leg swelling. Upon EMS arrival, BS 180, O2 sat 95% RA. Patient states he is on diuretics, has not been compliant with medication. He noticed shortness of breath worsens when laying down. He is currently taking Fentanyl, Percocet for chronic back pain. PMHx DM, HTN, HLD, chronic back pain, anxiety. Denies nausea, vomiting, diarrhea, headache, dizziness, blurry vision, fever. No other symptoms or modifying factors present at this time. Chief Complaint: Shortness of Breath Time Seen by MD: 14:55 Primary Care Provider: CALVIN Rodriguez notes: Medications, Allergies Information Source: Patient, Emergency Med Personnel Mode of Arrival: EMS Severity: Moderate Timing: Months Duration: Intermittent Context: While Asleep PE Risk Factors: None History of: Anxiety Prehospital treatment: None Modifying Factors: Sitting up Associated Signs and Symptoms: Chest Pain, Other Radiation: No Radiation Past Medical History PAST MEDICAL HISTORY: Anxiety, CHF, DM, High Lipids, HTN Surgical History (Other): knee surgery, ankle surgery Family History Family History: Reviewed,noncontributory to illness, Family hx of heart milly Social History Smoker: Cigarettes Alcohol: Denies ETOH Use Drugs: Marijuana Lives In: Home EENTM: denies: blurred vision, double vision, ear bleeding, ear discharge, ear drainage, ear pain, ear ringing, eye pain, eye redness, hearing loss, mouth pain, mouth swelling, nasal discharge, nose bleeding, nose congestion, nose pain, photophobia, tearing, throat pain, throat swelling, voice changes, others Respiratory: reports: shortness of breath; denies: cough, hemoptysis, orthopnea, SOB at rest, SOB with excertion, stridor, wheezing, others Cardiovascular: reports: chest pain; denies: dizzy spells, diaphoresis, Dyspnea on exertion, edema, irregular heart beat, left arm pain, lightheadedness, palpitations, PND, syncope, others Gastrointestinal: reports: abdomen distended; denies: abdominal pain, blood streaked bowels, constipated, diarrhea, dysphagia, difficulty swallowing, hematemesis, melena, nausea, poor appetite, poor fluid intake, rectal bleeding, rectal pain, vomiting, others Genitourinary: denies: burning, dysuria, flank pain, frequency, hematuria, incontinence, penile discharge, penile sore, pain, testicle pain, testicle swelling, urgency, others Neurological: denies: dizziness, fainting, headache, left sided numbness, left sided weakness, numbness, paresthesia, pre-existing deficit, right sided numbness, right sided weakness, seizure, speech problems, tingling, tremors, weakness, others Musculoskeletal: reports: others (bilateral legs swelling); denies: back pain, gout, joint pain, joint swelling, muscle pain, muscle stiffness, neck pain Integumetry: denies: bruises, change in color, change in hair/nails, dryness, laceration, lesions, lumps, rash, wounds, others Allergic/Immunocompromised: denies: Difficulty Healing, Frequent Infections, Hives, Itching, others Hematologic/Lymphatic: denies: anemia, blood clots, easy bleeding, easy bruising, swollen glands, others Endocrine: denies: excessive hunger, excessive sweating, excessive thirst, excessive urination, flushing, intolerance to cold, intolerance to heat, unexpl ained weight gain, unexplained weight loss, others Psychiatric: denies: anxiety, bipolar disorder, depression, hopeless, panic disorder, schizophrenia, sleepless, suicidal, others All Other Systems: Reviewed and Negative Physical Exam General Appearance: Moderate Distress HEENT: Normal ENT Inspection, Pharynx Normal, TMs Normal Neck: Full Range of Motion, Non-Tender, Normal, Normal Inspection Respiratory: Chest Non-Tender, Decreased Breath Sounds (Decreased breath sounds on the right side), No Accessory Muscle Use, No Respiratory Distress Cardiovascular: No Edema, No JVD, No Murmur, No Gallop, Tachycardia Breast Exam: Deferred Gastrointestinal: No Organomegaly, Non Tender, No Pulsatile Mass, Normal Bowel Sounds, Soft Genitalia: Deferred Pelvic: Deferred Rectal: Deferred Extremities: No calf tenderness, Normal capillary refill, Normal inspection, Normal range of motion, Non-tender, No pedal edema Musculoskeletal : Apperance: Normal 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 Was a procedure done? Was a procedure done?: No Differential Dx Differential Diagnosis: Asthma, Bronchitis, CHF, COPD, Pneumonia X-Ray, Labs, Meds, VS Vital Signs Date Time Temp Pulse Resp B/P (MAP) Pulse Ox O2 Delivery O2 Flow Rate FiO2 11/26/24 16:05 104 11/26/24 16:03 105 19 93/67 (76) 98 11/26/24 15:29 102 15 95 Room Air* 0 21 11/26/24 15:25 98.2 102 15 126/95 (105) 95 98.2 11/26/24 15:20 104/70 11/26/24 14:54 103 11/26/24 14:54 98.2 105 18 127/88 (101) 96 98.2 Lab Test 11/26/24 16:16 11/26/24 16:01 11/26/24 15:17 Range/Units Sodium Level 141 136-145 mmol/L Potassium Level 4.3 3.5-5.1 mmol/L Chloride Level 104 98-107 mmol/L Carbon Dioxide Level 29 20-31 mmol/L Anion Gap 8 5-15 Blood Urea Nitrogen 25 H 9-23 mg/dL Creatinine 1.36 H 0.700-1.30 mg/dL Glomerular Filtration Rate Calc 57 >90 mL/min BUN/Creatinine Ratio 18.4 10.0-20.0 Serum Glucose 182 H 74-106 mg/dL Calcium Level 9.6 8.7-10.4 mg/dL Troponin I High Sensitivity 77 *H 72 *H </=54 ng/L Urine Color Light-yellow Yellow Urine Clarity Clear Clear Urine pH 6.5 5.0-9.0 Urine Specific [place] 1.009 1.001-1.035 Urine Protein Trace H Negative Urine Ketones Negative Negative Urine Blood Negative Negative /uL Urine Nitrite Negative Negative Urine Bilirubin Negative Negative Urine Urobilinogen Normal Negative mg/dL Urine Leukocyte Esterase Negative Negative /uL Urine RBC <1 0 - 3 /hpf Urine Microscopic WBC 1 0-3 /HPF Urine Squamous Epithelial Cells None seen <5 /hpf Urine Bacteria None seen None Seen /hpf Urine Glucose Normal Normal mg/dL Urine Opiates Screen Neg NEGATIVE Urine Fentanyl Screen Pos NEGATIVE Urine Barbiturates Screen Neg NEGATIVE Urine Phencyclidine Screen Neg NEGATIVE Urine Amphetamines Screen Neg NEGATIVE Urine Benzodiazepines Screen Neg NEGATIVE Urine Cocaine Screen Neg NEGATIVE Urine Cannabinoids Screen Neg NEGATIVE White Blood Count 5.8 4.4-10.8 10^3/uL Red Blood Count 4.59 4.5-5.90 10^6/uL Hemoglobin 11.8 L 13.5-17.5 g/dL Hematocrit 37.4 L 41.0-53.0 % Mean Corpuscular Volume 81.6 80.0-100.0 fL Mean Corpuscular Hemoglobin 25.7 L 28.0-32.0 pg Mean Corpuscular Hemoglobin Concent 31.5 L 32.0-36.0 g/dL Red Cell Distribution Width 16.5 H 11.8-14.3 % Platelet Count 246 140-450 10^3/uL Mean Platelet Volume 8.3 6.9-10.8 fL Neutrophils (%) (Auto) 64.8 37.0-80.0 % Lymphocytes (%) (Auto) 19.0 10.0-50.0 % Monocytes (%) (Auto) 11.2 0.0-12.0 % Eosinophils (%) (Auto) 3.8 0.0-7.0 % Basophils (%) (Auto) 1.2 0.0-2.0 % Neutrophils # (Auto) 3.7 1.6-8.6 10 ^3/uL Lymphocytes # (Auto) 1.1 0.4-5.4 10 ^3/uL Monocytes # (Auto) 0.6 0-1.3 10 ^3/uL Eosinophils # (Auto) 0.2 0-0.8 10 ^3/uL Basophils # (Auto) 0.1 0-0.2 10 ^3/uL Nucleated Red Blood Cells 0.1 % D-Dimer, Quantitative Pending B-Type Natriuretic Peptide 1530.38 0-100 pg/mL Current Medications Medications (Trade) Dose Ordered Sig/Clay Route Start Time Stop Time Status Last Admin Furosemide (Lasix Injection) 40 mg ONCE ONCE IV 11/26/24 15:15 11/26/24 15:16 DC 11/26/24 15:20 PROCEDURE(s): CXRP - CHEST PORTABLE IMPRESSION: 1. Right lower lobe infiltrate and/or atelectasis. HS:Y At this time, the patient was given Lasix 40 mg IV push The patient is the urine tox is positive for fentanyl The patient's CBC shows a BUN of 25 and a creatinine of 1.36 The troponin level seems to be increased at 77 This is increased from 72 At this time, the patient was being admitted to the hospitalist The patient was also being started on Rocephin 1 g IV piggyback for possible right lower lobe pneumonia Images Reviewed?: Images reviewed and evaluated by me Time of 1ST Reevaluation: 15:25 Reevaluation 1ST: Unchanged Patient Education/Counseling: Diagnosis, Treatment, Prognosis Family Education/Counseling: No Family Present Departure 1 Departure Time of Disposition: 17:18 Impression: Primary Impression: Right lower lobe pneumonia Qualified Codes: J18.9 - Pneumonia, unspecified organism Additional Impressions: Elevated troponin Acute on chronic diastolic heart failure Disposition: ADMITTED INPATIENT Admit to: [facility] Condition: Fair Critical Care Note Critical Care Time?: Yes (45 min-critical care time only) Stability Stability form required: Yes Unstable for transfer: Telemetry monitoring (Telemetry monitoring required), ED Physician Assesment (Clinical assesment) Heart Score Heart Score: Heart Score Response (Comments) Value History Moderate Suspicious 1 EKG Repolarization Disturb 1 Age >65 2 Risk Factors 1 or 2 risk factors 1 Troponin 1-2 x's Normal limit 1 Total 6 I personally scribed for GEN VILLEGAS MD ([email or web address]) on 11/26/24 at 15:18. Electronically submitted by Fadia Cavanaugh ([email or web address]). I personally scribed for GEN VILLEGAS MD ([email or web address]) on 11/26/24 at 16:18. Electronically submitted by Fadia Cavanaugh ([email or web address]). GEN VILLEGAS MD Nov 26, 2024 15:18
[2024-11-26] MEDS: FUROSEMIDE 40 MG/4 ML VIAL IV ONE (15:20)
[2024-11-26 15:29] VITALS: PULSE 102; RESP 15; O2SAT 95
[2024-11-26 15:37] LABS: Basophils # (auto) 0.1 10 ^3/uL (0-0.2); Eosinophils # (auto) 0.2 10 ^3/uL (0-0.8); Lymphocytes # (auto) 1.1 10 ^3/uL (0.4-5.4); Mean Corpuscular Volume 81.6 fL (80.0-100.0); Monocytes # (auto) 0.6 10 ^3/uL (0-1.3); Nucleated Red Blood Cells % 0.1 %
[2024-11-26 15:39] LABS: Basophils % (auto) 1.2 % (0.0-2.0); Eosinophils % (auto) 3.8 % (0.0-7.0); Hematocrit 37.4 % (41.0-53.0); Hemoglobin 11.8 g/dL (13.5-17.5); Mean Corpuscular Hemoglobin 25.7 pg (28.0-32.0); Mean Corpuscular Hgb Conc. 31.5 g/dL (32.0-36.0); Monocytes % (auto) 11.2 % (0.0-12.0); Neutrophils # (auto) 3.7 10 ^3/uL (1.6-8.6); Neutrophils % (auto) 64.8 % (37.0-80.0); Platelet Count (auto) 246 10^3/uL (140-450); Red Blood Cells 4.59 10^6/uL (4.5-5.90); Red Cell Distribution Width 16.5 % (11.8-14.3); White Blood Cell 5.8 10^3/uL (4.4-10.8)
--- NOTE | 2024-11-26 15:56 | DVH ---
CHEST RADIOGRAPH Indication: sob Technique: Single frontal view of the chest was obtained Comparison: XY CHEST PORTABLE on DOS: 10/15/24, XY CHEST PORTABLE on DOS: 12/17/23, XY CHEST PORTABLE on DOS: 12/16/23 FINDINGS: Lines and Tubes: None Lungs: Right lower lobe infiltrate and/or atelectasis. Pleura: No effusion. No pneumothorax. Cardiomediastinal contours: Unremarkable Bones: No acute osseous abnormality. IMPRESSION: 1. Right lower lobe infiltrate and/or atelectasis. HS:Y
[2024-11-26 16:22] LABS: Urine Bacteria None Seen /hpf (None Seen)
[2024-11-26 16:26] LABS: Urine Blood Negative /uL (Negative); Urine Clarity Clear (Clear); Urine Color Light-Yellow (Yellow); Urine Protein, UAD TRACE (Negative); Urine Specific Gravity 1.009 (1.001-1.035); Urine Squamous Epithelial Cell None Seen /hpf (<5); Urine Urobilinogen Normal (Negative); Urine WBC 1 /HPF (0-3); Urine pH 6.5 (5.0-9.0)
[2024-11-26 16:33] LABS: Chloride 104 mmol/L (98-107); Potassium 4.3 mmol/L (3.5-5.1); Sodium 141 mmol/L (136-145)
[2024-11-26 16:34] LABS: Anion Gap 8 (5-15); Carbon Dioxide 29 mmol/L (20-31)
[2024-11-26 16:35] LABS: Calcium 9.6 mg/dL (8.7-10.4)
[2024-11-26 16:39] LABS: Cannabinoid Screen, Urine Neg (NEGATIVE)
[2024-11-26 16:39] LABS: BUN/Creatinine Ratio 18.4 (10.0-20.0)
[2024-11-26 16:40] LABS: Blood Urea Nitrogen 25 mg/dL (9-23); Glucose 182 mg/dL (74-106)
[2024-11-26 16:40] LABS: Amphetamine Screen, Urine Neg (NEGATIVE); Barbiturate Scree,Urine Neg (NEGATIVE); Benzodiazephine Screen, Urine Neg (NEGATIVE); Cocaine Screen, Urine Neg (NEGATIVE); Opiate Scree,Urine Neg (NEGATIVE); Phencyclidine Screen, Urine Neg (NEGATIVE)
[2024-11-26] MEDS ORDERED: ACETAMINOPHEN 325 MG TAB PO PRN (17:45)
[2024-11-26] MEDS ORDERED: ONDANSETRON HCL 4 MG/2 ML VIAL IV PRN (17:45)
[2024-11-26] MEDS ORDERED: MORPHINE SULFATE INJ 2 MG/ml SYRG IV PRN (17:45)
[2024-11-26] MEDS ORDERED: NITROGLYCERIN 0.4 MG SL TAB SL PRN (17:45)
[2024-11-26] MEDS: cefTRIAXone 1GM/50ML D5W 50 ML IV ONE (18:23)
[2024-11-26] MEDS: MORPHINE SULFATE INJ 2 MG/ml SYRG IV PRN (18:31)
[2024-11-26] MEDS: AZITHROMYCIN 500MG/ 250ML 250 ML IV SCH (18:57)
[2024-11-26 19:30] VITALS: RESP 16; O2SAT 94
[2024-11-26 20:04] VITALS: BP 105/74; PULSE 104; RESP 24; TEMP 98.2; O2SAT 94
[2024-11-26] MEDS ORDERED: BUSP5TAB78 PO (21:31)
[2024-11-26 22:00] VITALS: BP 108/72; PULSE 104; RESP 20; TEMP 97.7; O2SAT 100
[2024-11-26] MEDS ORDERED: METO-6 PO (22:51)
[2024-11-26] MEDS ORDERED: FURO40TA4 PO (22:51)
[2024-11-26] MEDS ORDERED: LOPE-20 PO (23:56)
[2024-11-26] MEDS ORDERED: LISI-706 PO (23:57)
[2024-11-26] MEDS ORDERED: OXYC325T14 PO (23:59)
[2024-11-27] VITALS (21 sets, daily range): BP systolic 92–135; BP diastolic 66–81; PULSE 74–110; RESP 14–28; TEMP 96.6–98.6; O2SAT 85–100
[2024-11-27] MEDS ORDERED: TEST1.62 TOP (00:01)
[2024-11-27] MEDS ORDERED: INSU75IN2 SC ×2 (00:02→00:03)
[2024-11-27] MEDS ORDERED: METF-929 PO (00:02)
[2024-11-27] MEDS: HYDROcodone-ACET 5/325MG TAB PO PRN (00:25)
[2024-11-27] MEDS: IPRATROPIUM BROM 0.5 MG/2.5ML INH SOL NEB SCH (00:32)
--- NOTE | 2024-11-27 02:21 | DVHHP2 ---
Admitting Diagnosis: right lower lobe pneumonia, elevated troponin level , anxiety disorder History of Present Illness History Source: Patient Exam Limitations: No limitations HPI Mr. Gene Diaz is a 69 year old male with a history of CHF, DM, hyperlipidemia, hypertension, anxiety disorder who presents with a chief complaint of shortness of breath onset 2 months. Patient reports has been experiencing intermittent shortness of breath for the past 2 months, last 3 weeks has noticed abdominal distention as well as bilateral lower extremity swelling. Patient reports he wakes up at night with sudden dyspnea. Patient denies chest pain, headaches, dizziness, nausea, vomiting, fevers, chills, or sick contact. Patient admitted for further evaluation and treatment. Home Meds Active Scripts Carvedilol (Carvedilol) 6.25 Mg Tab, 1 TAB PO BID, #60 TAB 1 Refill Prov:MERVIN HINOJOSA MD 12/18/23 Furosemide (Furosemide) 40 Mg Tab, 1 TAB PO BID, #60 TAB 2 Refills Prov:MERVIN HINOJOSA MD 12/18/23 Losartan Potassium (Losartan Potassium) 25 Mg Tab, 25 MG PO QPM, #60 TAB Prov:MERVIN HINOJOSA MD 12/18/23 Atorvastatin Calcium (ATORVASTATIN CALCIUM) 20 Mg Tab, 20 MG PO HS, #60 TAB Prov:MERVIN HINOJOSA MD 12/18/23 Reported Medications Insulin Lispro Protamine & Lis (Humalog Mix 75/25 Kwikpen) 75 Mg/25 Kwp Inj, 40 MG SC HS, INJ 11/27/24 Insulin Lispro Protamine & Lis (Humalog Mix 75/25 Kwikpen) 75 Mg/25 Kwp Inj, 60 MG SC DAILY, INJ 11/27/24 Metformin HCl (Metformin Hydrochloride) 1,000 Mg Tab, 1000 MG PO BID, TAB 11/27/24 Testosterone (ANDROGEL PUMP) 1.62 % Gel, 20.25 MG TOP DAILY, #75 GRAMS 5 Refills 11/27/24 Oxycodone W/ Acetaminophen (Apap/Oxycodone) 1 Tab Tab, 1 TAB PO Q4HR PRN for PAIN SCALE 1 THRU 6, #180 TAB 11/26/24 Lisinopril & Hydrochlorothiazi (Zestoretic 20-12.5 mg) 1 Tab Tab, 1 TAB PO, TAB 11/26/24 Baclofen (Baclofen) 20 Mg Tab, 10 MG PO TID, TAB 11/26/24 Loperamide Hcl (CVS ANTI-DIARRHEAL) 2 Mg Cap, 2 MG PO, CAP 11/26/24 Metoprolol Succinate (Toprol Xl) 50 Mg Tab, 1 TAB PO DAILY, #30 TAB 5 Refills 11/26/24 Furosemide (Furosemide) 40 Mg Tab, 1 TAB PO DAILY, #30 TAB 5 Refills 11/26/24 Buspirone HCl (Buspirone Hydrochloride) 5 Mg Tab, 5 MG PO BID, TAB 11/26/24 Fentanyl (Fentanyl) 25 Mcg/Hr Dis, 25 MCG TD, DIS 10/15/24 Clonidine Hydrochloride (Clonidine Hcl) 0.1 Mg Tab, 0.1 MG PO BID, TAB 10/15/24 Baclofen (Baclofen) 20 Mg Tab, 1 TAB PO TID, #90 TAB 2 Refills 10/15/24 Buspirone Hcl (Buspirone Hcl) 5 Mg Tab, 5 MG PO Q12HR for 30 Days, MG 12/17/23 Metformin Hydrochloride (Metformin Hcl) 1,000 Mg Tab, 1 TAB PO BID, #60 TAB 5 Refills 04/24/20 Gabapentin (Gabapentin) 600 Mg Tab, 2 TAB PO TID for 30 Days, MG 04/24/20 Insulin Aspart Protamine & Asp (Novolog Mix 70/30 Prefill (70-30) 100 Unit/ml) 1 Inj Inj, 1 INJ SC UD PRN for PER SLIDING SCALE, INJ 04/24/20 Naproxen (NAPROSYN TABLET) 500 Mg Tb, 1 TAB PO BID, #60 TAB 1 Refill 06/04/17 Tamsulosin Hcl (Tamsulosin Hcl) 0.4 Mg Cap, 0.4 MG PO DAILY@BREAKFAST for 30 Days, MG 06/04/17 Past Medical History Cardiac: CHF, HTN, Hyperlipidemia Pulmonary: No pertinent Hx Central Nervous System: No pertinent Hx GI: No pertinent Hx Hemotology/Oncology: No pertinent Hx Hepatobiliary: No pertinent Hx Psychiatric: Anxiety (disorder) Musculoskeletal: No pertinent Hx Rheumotologic: No pertinent Hx Infectious Disease: No peritnent Hx ENT: No pertinent Hx Renal/: No pertinent Hx Endocrine: NIDDM Dermatology: No pertinent Hx Patient Family History: Cardiovascular disease G8 FATHER Diabetes mellitus G8 MOTHER FH: myocardial infarction G8 FATHER Smoker: No Hx (Negative) Alocohol: None Drugs: None Domestic Violence: Neg Review of Systems Constitutional: No symptom reported Ears, Nose, & Throat: No symptom reported Eyes: No symptom reported Pulmonary/Respiratory: Dyspnea Cardiovascular: No symptom reported Gastrointestinal: No symptom reported Genitourinary: No symptom reported Musculoskeletal: No symptom reported Skin: No symptom reported Psychiatric: Anxiety Endocrine: No symptom reported Hemotologic/Lymphatic: No symptom reported H&P Exam Vital Signs Vital Signs Date Time Temp Pulse Resp B/P (MAP) Pulse Ox O2 Delivery O2 Flow Rate FiO2 11/27/24 00:42 101 18 98 11/27/24 00:32 Nasal Cannula* 2 28 11/26/24 23:04 117/73 11/26/24 20:04 98.2 98.2 General Appeara: Well developed, Well nourished, Normal Appearance Head Exam: Normal inspection Neck Exam: Normal inspection, Non-tender, Normal alignment Eye Exam: bilateral eye Normal inspection, bilateral eye PERRL, bilateral eye EOMI Ear Exam: bilateral ear Auricle normal Nasal Exam: Normal inspection Mouth: Normal Inspection Pulmonary/Respiratory: Normal inspection, Normal breath sounds, Chest non- tender, Lungs clear Cardiovascular/Chest: Normal inspection, Regular rate, Normal Rhythm Peripheral Pulses: 2+ dorsalis pedis (R), 2+ dorsalis pedis (L), 2+ Radial (R), 2+ Radial (L) Abdominal Exam: Normal bowel sounds, Soft, No tenderness Rectal Exam: Deferred Back Exam: Normal inspection Male Genital Exam: Not done Legs: bilateral leg non-tender, bilateral leg normal inspection, bilateral leg normal range of 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: Normal hearing, Normal speech, PERRL Motor/Sensory: Normal sensory function, Normal motor function Neuro/Mental St: Alert, Oriented Appearance: Appropriate appearance, Appropriate insight Eye contact/ Speech: Cooperative, Good eye contact, Compulsive Thoughts/Psych: Normal thought pattern, Other (high anxiety) Skin Exam: Normal inspection, Normal color, Warm/dry Labs/Xrays Labs Test 11/26/24 17:45 11/26/24 16:16 11/26/24 16:01 11/26/24 15:17 Range/Units Troponin I High Sensitivity 73 *H </=54 ng/L Sodium Level 141 136-145 mmol/L Potassium Level 4.3 3.5-5.1 mmol/L Chloride Level 104 98-107 mmol/L Carbon Dioxide Level 29 20-31 mmol/L Anion Gap 8 5-15 Blood Urea Nitrogen 25 H 9-23 mg/dL Creatinine 1.36 H 0.700-1.30 mg/dL Glomerular Filtration Rate Calc 57 >90 mL/min BUN/Creatinine Ratio 18.4 10.0-20.0 Serum Glucose 182 H 74-106 mg/dL Calcium Level 9.6 8.7-10.4 mg/dL Urine Color Light-yellow Yellow Urine Clarity Clear Clear Urine pH 6.5 5.0-9.0 Urine Specific [place] 1.009 1.001-1.035 Urine Protein Trace H Negative Urine Ketones Negative Negative Urine Blood Negative Negative /uL Urine Nitrite Negative Negative Urine Bilirubin Negative Negative Urine Urobilinogen Normal Negative mg/dL Urine Leukocyte Esterase Negative Negative /uL Urine RBC <1 0 - 3 /hpf Urine Microscopic WBC 1 0-3 /HPF Urine Squamous Epithelial Cells None seen <5 /hpf Urine Bacteria None seen None Seen /hpf Urine Glucose Normal Normal mg/dL Urine Opiates Screen Neg NEGATIVE Urine Fentanyl Screen Pos NEGATIVE Urine Barbiturates Screen Neg NEGATIVE Urine Phencyclidine Screen Neg NEGATIVE Urine Amphetamines Screen Neg NEGATIVE Urine Benzodiazepines Screen Neg NEGATIVE Urine Cocaine Screen Neg NEGATIVE Urine Cannabinoids Screen Neg NEGATIVE White Blood Count 5.8 4.4-10.8 10^3/uL Red Blood Count 4.59 4.5-5.90 10^6/uL Hemoglobin 11.8 L 13.5-17.5 g/dL Hematocrit 37.4 L 41.0-53.0 % Mean Corpuscular Volume 81.6 80.0-100.0 fL Mean Corpuscular Hemoglobin 25.7 L 28.0-32.0 pg Mean Corpuscular Hemoglobin Concent 31.5 L 32.0-36.0 g/dL Red Cell Distribution Width 16.5 H 11.8-14.3 % Platelet Count 246 140-450 10^3/uL Mean Platelet Volume 8.3 6.9-10.8 fL Neutrophils (%) (Auto) 64.8 37.0-80.0 % Lymphocytes (%) (Auto) 19.0 10.0-50.0 % Monocytes (%) (Auto) 11.2 0.0-12.0 % Eosinophils (%) (Auto) 3.8 0.0-7.0 % Basophils (%) (Auto) 1.2 0.0-2.0 % Neutrophils # (Auto) 3.7 1.6-8.6 10 ^3/uL Lymphocytes # (Auto) 1.1 0.4-5.4 10 ^3/uL Monocytes # (Auto) 0.6 0-1.3 10 ^3/uL Eosinophils # (Auto) 0.2 0-0.8 10 ^3/uL Basophils # (Auto) 0.1 0-0.2 10 ^3/uL Nucleated Red Blood Cells 0.1 % D-Dimer, Quantitative 2.91 H 0.0-0.49 mg/L FEU B-Type Natriuretic Peptide 1530.38 0-100 pg/mL Assessment/Plan Problem List: (1) Right lower lobe pneumonia (2) Elevated troponin (3) Acute on chronic diastolic heart failure (4) Acute anxiety Plan This is a 69 yo male with known history of CHF, DM, Hyperlipidemia, hypertension, anxiety disorder who presents to the hospital with shortness of breath x2 months worsening past couple days with abdominal distention and bilateral lower extremity swelling. Patient found to have 1. Right lower lobe Pneumonia 2. Elevated troponin level 3. Hypotension 4. DM type2 5. Anxiety disorder Plan: Admit Telemetry unit Cardiology consultation, cardiac echocardiogram, serial troponin levels, Statin, Lovenox SC IV antibiotics Azithromycin, Ceftriaxone, Duo Neb treatments Glucose monitoring ac & hs coverage with insulin ss Reconcile home medications continue as needed Continue home medication Buspar PO Discussed all above with patient who verbalizes agreement and understanding of care plan. All questions were answered. Discussed care plan with patient nurse Suman BAHENA. Discussed assessment and care plan with supervising/admitting MD. Plan discussed with: Patient, Other Code Visit Code Visit Total Time (mins): 45 Additional Comments Additional Comments Additional Comments Patient was seen and evaluated by me. I agree with the assessment and plan as outlined by my nurse practitioner. RONNY ZAYAS Nov 27, 2024 02:21 JOURDAN THOMAS MD Nov 28, 2024 17:35
[2024-11-27] MEDS: LORazepam 2MG/ML-1ML VIAL IV ONE (05:41)
[2024-11-27] MEDS: GABAPENTIN 300 MG CAP PO SCH (06:00)
[2024-11-27] MEDS: InsuLIN REG 1unit/0.01ml Soln (100units/ml) SC SCH (07:00)
[2024-11-27] MEDS: ACCU-CHEK COMFORT CURVE STRIP VI SCH (07:03)
[2024-11-27 07:22] LABS: Basophils # (auto) 0.1 10 ^3/uL (0-0.2); Eosinophils # (auto) 0.3 10 ^3/uL (0-0.8); Monocytes # (auto) 0.8 10 ^3/uL (0-1.3); Red Cell Distribution Width 16.8 % (11.8-14.3)
[2024-11-27 07:24] LABS: Basophils % (auto) 1.4 % (0.0-2.0); Eosinophils % (auto) 4.2 % (0.0-7.0); Hematocrit 36.7 % (41.0-53.0); Hemoglobin 11.9 g/dL (13.5-17.5); Lymphocytes # (auto) 1.5 10 ^3/uL (0.4-5.4); Lymphocytes % (auto) 25.8 % (10.0-50.0); Mean Corpuscular Hemoglobin 26.3 pg (28.0-32.0); Mean Corpuscular Hgb Conc. 32.4 g/dL (32.0-36.0); Mean Corpuscular Volume 81.4 fL (80.0-100.0); Monocytes % (auto) 13.6 % (0.0-12.0); Neutrophils # (auto) 3.3 10 ^3/uL (1.6-8.6); Nucleated Red Blood Cells % 0.3 %; Platelet Count (auto) 248 10^3/uL (140-450); Red Blood Cells 4.51 10^6/uL (4.5-5.90)
[2024-11-27 07:31] LABS: Alanine Aminotransferase < 9 U/L (7-40); Albumin 3.9 g/dL (3.2-4.8); Alkaline Phosphatase 81 U/L (46-116); Anion Gap 8 (5-15); Aspartate Aminotransferase 33 U/L (13-40); BUN/Creatinine Ratio 15.3 (10.0-20.0); Bilirubin, Total 1.1 mg/dL (0.2-1.0); Blood Urea Nitrogen 24 mg/dL (9-23); Calcium 9.4 mg/dL (8.7-10.4); Carbon Dioxide 27 mmol/L (20-31); Chloride 106 mmol/L (98-107); Glucose 52 mg/dL (74-106); Potassium 3.7 mmol/L (3.5-5.1); Sodium 141 mmol/L (136-145); Total Protein 6.7 g/dL (5.7-8.2)
[2024-11-27] MEDS: busPIRone HCL 10 MG TAB PO SCH (11:31)
[2024-11-27] MEDS: METOPROLOL SUCCINATE XL 50 MG TAB PO SCH (11:31)
[2024-11-27] MEDS: ENOXAPARIN SOD 30 MG/0.3 ML SYRINGE SC SCH (11:33)
[2024-11-27] MEDS: cefTRIAXone 1GM/50ML D5W 50 ML IV SCH (11:55)
--- NOTE | 2024-11-27 13:46 | DVHSR ---
APPROVED REPORT EXAM: Two-dimensional and M-mode echocardiogram with Doppler and color Doppler. Blood Pressure: 92/66 mmHg INDICATION Chest Pain RISK FACTORS Obesity: Height: 6'2", Weight: 301 DIMENSIONS LVDd6.5 (3.8-5.7cm)LA (2D)5.0 (1.9-4.0cm)Aortic Root3.4 (2.0-3.7cm) LVDs6.2 (2.5-4.0cm)LA (MM) (1.9-4.0cm)Aortic Cusp Exc1.7 (1.5-2.0cm) EF (%) 12.0 (55-70%)Rt. Atrium5.5 (1.9-4.0cm)Asc. Aorta3.6 cm IVSd0.9 (0.7-1.1cm)RV (D)6.2 (1.8-2.4cm) PWd1.0 (0.7-1.1cm) Mitral Valve MitralMitral Stenosis E wave1.12m/sMV Mean GR.mmHg E/A ratio0.02D MVAcm2 Aortic Valve Aortic ValveAortic Stenosis V10.52m/Yaneli Mean GR.2mmHg V20.89m/Yaneli Peak GR.3mmHg LVOT Diameter2.1 (1.8-2.4cm)Doppler AVA2.02cm2 Tricuspid Valve TR Velocity2.45m/s [id number] Conclusion The left ventricle is dilated Left ventricular systolic function is severely depressed Ejection fraction is estimated at 20% There is biatrial enlargement There is moderate to severe mitral regurgitation There is [id number] tricuspid regurgitation Right ventricular systolic pressure estimated to be within normal limits There is no pericardial effusion
--- NOTE | 2024-11-27 14:50 | DVHINCON2 ---
DATE OF CONSULTATION: 11/27/2024 REFERRING PHYSICIAN: Jake Pineda MD CONSULTING PHYSICIAN: Diaz Willingham MD INDICATION: Shortness of breath. HISTORY OF PRESENT ILLNESS: The patient is a 69-year-old male with history of diabetes, hypertension, dyslipidemia, CHF, presented to the hospital with complaints of shortness of breath and lower extremity edema. The patient denies any chest pain. The patient was noted to have mild troponin elevation with no significant trend up. Now admitted with diagnosis of pneumonia. PAST MEDICAL HISTORY: * Diabetes. * Hypertension. * CHF. MEDICATIONS: Per med rec. ALLERGIES: No known drug allergies. PHYSICAL EXAMINATION: GENERAL: Alert and awake, in no form of cardiopulmonary distress. VITAL SIGNS: Blood pressure 120/78, pulse 94 per minute, saturation 99%. HEENT: No carotid bruits. No jugular venous distention. CHEST: Bilateral air entry decreased. CARDIOVASCULAR: Precordial and carotid pulses palpable. Normal S1 and S2. EXTREMITIES: Bilateral edema. DIAGNOSTIC DATA: White count 6, hemoglobin 11, platelets 248. Sodium 140, potassium 4.3, creatinine is 1.3. Troponin first set . BNP is 1530. Chest x-ray showed right lower lobe infiltrate. ASSESSMENT: * Right lower lobe pneumonia. * Congestive heart failure. * Hypertension. * Diabetes. * Elevated troponin, possibly demand ischemia. RECOMMENDATIONS: * Continue IV antibiotics. * Monitor electrolytes. * Start p.o. Lasix. * Obtain echo. * Continue telemetry monitoring. Thank you for allowing me to participate in the care of this patient. MD JAYCE Castillo/PORFIRIO/AVIS TID: [id number] RECEIPT: [id number]
--- NOTE | 2024-11-27 18:58 | DVHINCON2 ---
Date of Service if different f: Nov 27, 2024 Time of Service: 18:35 Consultation ([facility]) Consulting Physician: MYA BARKER MD Labs Laboratory Tests Test 11/26/24 15:17 11/26/24 16:01 11/27/24 06:03 11/27/24 14:11 D-Dimer, Quantitative 2.91 mg/L FEU (0.0-0.49) B-Type Natriuretic Peptide 1530.38 pg/mL (0-100) Urine Color Light-yellow (Yellow) Urine Clarity Clear (Clear) Urine pH 6.5 (5.0-9.0) Urine Specific [place] 1.009 (1.001-1.035) Urine Protein Trace (Negative) Urine Ketones Negative (Negative) Urine Blood Negative /uL (Negative) Urine Nitrite Negative (Negative) Urine Bilirubin Negative (Negative) Urine Urobilinogen Normal mg/dL (Negative) Urine Leukocyte Esterase Negative /uL (Negative) Urine RBC <1 /hpf (0 - 3) Urine Microscopic WBC 1 /HPF (0-3) Urine Squamous Epithelial Cells None seen /hpf (<5) Urine Bacteria None seen /hpf (None Seen) Urine Glucose Normal mg/dL (Normal) Urine Opiates Screen Neg (NEGATIVE) Urine Fentanyl Screen Pos (NEGATIVE) Urine Barbiturates Screen Neg (NEGATIVE) Urine Phencyclidine Screen Neg (NEGATIVE) Urine Amphetamines Screen Neg (NEGATIVE) Urine Benzodiazepines Screen Neg (NEGATIVE) Urine Cocaine Screen Neg (NEGATIVE) Urine Cannabinoids Screen Neg (NEGATIVE) White Blood Count 6.0 10^3/uL (4.4-10.8) Red Blood Count 4.51 10^6/uL (4.5-5.90) Hemoglobin 11.9 g/dL (13.5-17.5) Hematocrit 36.7 % (41.0-53.0) Mean Corpuscular Volume 81.4 fL (80.0-100.0) Mean Corpuscular Hemoglobin 26.3 pg (28.0-32.0) Mean Corpuscular Hemoglobin Concent 32.4 g/dL (32.0-36.0) Red Cell Distribution Width 16.8 % (11.8-14.3) Platelet Count 248 10^3/uL (140-450) Mean Platelet Volume 8.6 fL (6.9-10.8) Neutrophils (%) (Auto) 55.0 % (37.0-80.0) Lymphocytes (%) (Auto) 25.8 % (10.0-50.0) Monocytes (%) (Auto) 13.6 % (0.0-12.0) Eosinophils (%) (Auto) 4.2 % (0.0-7.0) Basophils (%) (Auto) 1.4 % (0.0-2.0) Neutrophils # (Auto) 3.3 10 ^3/uL (1.6-8.6) Lymphocytes # (Auto) 1.5 10 ^3/uL (0.4-5.4) Monocytes # (Auto) 0.8 10 ^3/uL (0-1.3) Eosinophils # (Auto) 0.3 10 ^3/uL (0-0.8) Basophils # (Auto) 0.1 10 ^3/uL (0-0.2) Nucleated Red Blood Cells 0.3 % Sodium Level 141 mmol/L (136-145) Potassium Level 3.7 mmol/L (3.5-5.1) Chloride Level 106 mmol/L (98-107) Carbon Dioxide Level 27 mmol/L (20-31) Anion Gap 8 (5-15) Blood Urea Nitrogen 24 mg/dL (9-23) Creatinine 1.57 mg/dL (0.700-1.30) Glomerular Filtration Rate Calc 48 mL/min (>90) BUN/Creatinine Ratio 15.3 (10.0-20.0) Serum Glucose 52 mg/dL (74-106) Calcium Level 9.4 mg/dL (8.7-10.4) Total Bilirubin 1.1 mg/dL (0.2-1.0) Aspartate Amino Transf (AST/SGOT) 33 U/L (13-40) Alanine Aminotransferase (ALT/SGPT) < 9 U/L (7-40) Alkaline Phosphatase 81 U/L (46-116) Total Protein 6.7 g/dL (5.7-8.2) Albumin 3.9 g/dL (3.2-4.8) Troponin I High Sensitivity 60 ng/L (</=54) Appearance: Stated age Psychomotor activity: WNL, Calm Behavioral: Cooperative Eye contact: Appropriate Speech: WNL Affect: Appropriate, Mood Congruent Mood: Anxious Thought processes: Linear/Goal-directed Thought content: WNL Suicidal ideations: Absent Homicidal ideations: Absent Orientation: Person, Place, Time, Situation Memory intact: Recent Intellect: Average Abstractability: WNL Concentration: Adequate Attention: Adequate Judgement: WNL Insight: Fair Vitals Vital Signs Date Time Temp Pulse Resp B/P (MAP) Pulse Ox O2 Delivery O2 Flow Rate FiO2 11/27/24 14:13 103 20 94 11/27/24 13:00 98.6 100/76 (84) 98.6 11/27/24 06:28 Room Air* 0 21 Current medications Current Medications Medications Dose Ordered Sig/Clay Route Start Time Stop Time Status Last Admin Dose Admin Acetaminophen/ Hydrocodone Bitart 1 tab Q4HP PRN PO 11/26/24 17:45 11/27/24 14:04 1 TAB Ondansetron HCl 4 mg Q4HP PRN IV 11/26/24 17:45 Docusate Sodium 100 mg BIDPRN PRN PO 11/26/24 17:45 Enoxaparin Sodium 30 mg DAILY SC 11/27/24 10:00 11/27/24 11:33 30 MG Acetaminophen 650 mg Q6HP PRN PO 11/26/24 17:45 Morphine Sulfate 2 mg Q4HPRN PRN IV 11/26/24 17:45 11/26/24 22:34 2 MG Nitroglycerin 0.4 mg Q5MINP PRN SL 11/26/24 17:45 Morphine Sulfate 2 mg Q30M PRN IV 11/26/24 17:45 Ceftriaxone Sodium 50 ml @ 100 mls/hr DAILY@09 IV 11/27/24 09:00 11/27/24 11:55 100 MLS/HR Azithromycin 250 ml @ 125 mls/hr DAILY IV 11/26/24 17:45 11/27/24 12:39 125 MLS/HR Ipratropium [place] 0.5 mg Q4HR NEB 11/26/24 22:00 11/27/24 14:07 0.5 MG Atorvastatin Calcium 20 mg HS PO 11/27/24 22:00 Buspirone HCl 5 mg BID PO 11/27/24 10:00 11/27/24 11:31 5 MG Gabapentin 1,200 mg TID PO 11/27/24 06:00 11/27/24 14:03 1,200 MG Metoprolol Succinate 50 mg DAILY PO 11/27/24 10:00 11/27/24 11:31 50 MG Diagnostic Test (Pha) 1 strip ACHS 11/27/24 07:00 11/27/24 11:36 1 STRIP Insulin Human Regular ACHS SC 11/27/24 07:00 Dextrose 50 ml UD PRN IV 11/27/24 02:15 Treatment plan discussed: With staff Medication adjusted: Yes Labs ordered: No Psychotherapy provided: No Type: Voluntary History of Present Illness Reason for Consult : psychiatric evaluation PER H&P: Mr. Gene Diaz is a 69 year old male with a history of CHF, DM, hyperlipidemia, hypertension, anxiety disorder who presents with a chief complaint of shortness of breath onset 2 months. Patient reports has been experiencing intermittent shortness of breath for the past 2 months, last 3 weeks has noticed abdominal distention as well as bilateral lower extremity sw elling. Patient reports he wakes up at night with sudden dyspnea. Patient denies chest pain, headaches, dizziness, nausea, vomiting, fevers, chills, or sick contact. Patient admitted for further evaluation and treatment. PSYCHIATRIST HPI: The patient was seen and evaluated at [facility] via telepsychiatry platform. 69 yr old male reported he has been feeling very anxiety. He stated he screams at night due to shortness of breath. He feels short of breath often lately. He denied having nightmares. He said he is afraid to sleep because he feels like he will if he goes to sleep. He noted that 8 months ago, he couldn't sleep and they removed "Goop" from his lungs and he was good for a few months, but it returned about 5 months ago. He said his ankles and feet are swollen. He reported feeling fatigued and low energy. He said he gets dizzy when he stands and can't walk due to his leg swelling. He denied having auditory or visual hallucinations and denied being suicidal or homicidal. Past Psychiatric History: No history of hospitalization, treatment or suicide attempts. Current psych medications: Buspar 5mg BID NKDA Past Medical History : CHF, DM, Hyperlipidemia, hypertension, leg swelling Substance use: Denied use of alcohol and other substances Social History : Lives in [place] by self. for 7 years. Has one child (33 yr old in [facility] 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 On disability. DIAGNOSIS: UNSPECIFIED ANXIETY DISORDER Formulation: This 69 yr old male appears to suffer from anxiety which could be due to hypoxia from CHF although it is possible he has obstructive sleep apnea, so I recommend a sleep study and consider CPAP. He may benefit from starting an SSRI such as lexapro. Plan: 1. Safety. The patient is a low risk for self harm and may be managed as an outpatient. 2. Recommend sleep study to rule out sleep apnea. 3. Medications: recommend starting lexapro 5mg qam for anxiety reduction. Continue Buspar 5mg BID (may increase to 10mg BID) 4. Case discussed with SHRUTI Jewell. 5. Please recontact psychiatry for further follow up or reevaluation. Assessment/Diagnosis/Plan Reviewed: Labs, Medications, Previous Orders MYA BARKER MD Nov 27, 2024 17:49
[2024-11-27] MEDS: ATORVASTATIN 20 MG TAB PO SCH (21:30)
[2024-11-28] VITALS (19 sets, daily range): BP systolic 97–134; BP diastolic 70–100; PULSE 56–105; RESP 16–21; TEMP 97–98.2; O2SAT 83–100
--- NOTE | 2024-11-28 09:49 | CONS ---
Pharmacy Clinical Information: From Heart Failure Fallout Report on CQM Application, Gene Diaz is a 69 year old male with PMH of CHF (LVEF 20%), DM, HTN, HLD, anxiety. His home medications for heart failure include carvedilol, losartan, furosemide. His inpatient medications include metoprolol succinate. MRA, SGLT2i, ACEi/ARB/ARNi not recommended at this time due to hypotension and elevated sCr. KASHMIR OLIVERA PHARMACIST Nov 28, 2024 09:49
--- NOTE | 2024-11-28 17:40 | DVHPN2 ---
Subjective Overnight events noted. The patient currently has a sitter. 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 Medications Current Medications Medications Dose Ordered Sig/Clay Route Start Time Stop Time Status Last Admin Dose Admin Acetaminophen/ Hydrocodone Bitart 1 tab Q4HP PRN PO 11/26/24 17:45 11/28/24 15:28 1 TAB Ondansetron HCl 4 mg Q4HP PRN IV 11/26/24 17:45 Docusate Sodium 100 mg BIDPRN PRN PO 11/26/24 17:45 Enoxaparin Sodium 30 mg DAILY SC 11/27/24 10:00 11/28/24 10:41 30 MG Acetaminophen 650 mg Q6HP PRN PO 11/26/24 17:45 Morphine Sulfate 2 mg Q4HPRN PRN IV 11/26/24 17:45 11/28/24 06:04 2 MG Nitroglycerin 0.4 mg Q5MINP PRN SL 11/26/24 17:45 Morphine Sulfate 2 mg Q30M PRN IV 11/26/24 17:45 Ceftriaxone Sodium 50 ml @ 100 mls/hr DAILY@09 IV 11/27/24 09:00 11/28/24 10:34 100 MLS/HR Azithromycin 250 ml @ 125 mls/hr DAILY IV 11/26/24 17:45 11/28/24 10:00 125 MLS/HR Ipratropium [place] 0.5 mg Q4HR NEB 11/26/24 22:00 11/28/24 13:49 0.5 MG Atorvastatin Calcium 20 mg HS PO 11/27/24 22:00 11/27/24 21:30 20 MG Buspirone HCl 5 mg BID PO 11/27/24 10:00 11/28/24 10:44 5 MG Gabapentin 1,200 mg TID PO 11/27/24 06:00 11/27/24 21:30 1,200 MG Metoprolol Succinate 50 mg DAILY PO 11/27/24 10:00 11/28/24 10:44 50 MG Diagnostic Test (Pha) 1 strip ACHS 11/27/24 07:00 11/28/24 11:49 1 STRIP Insulin Human Regular ACHS SC 11/27/24 07:00 11/28/24 11:49 3 UNITS Dextrose 50 ml UD PRN IV 11/27/24 02:15 Laboratory Results Laboratory Tests 11/27/24 06:03 Urinalysis Test 11/26/24 16:01 Urine Color Light-yellow (Yellow) Urine Clarity Clear (Clear) Urine pH 6.5 (5.0-9.0) Urine Specific [place] 1.009 (1.001-1.035) Urine Protein Trace (Negative) H Urine Ketones Negative (Negative) Urine Blood Negative /uL (Negative) Urine Nitrite Negative (Negative) Urine Bilirubin Negative (Negative) Urine Urobilinogen Normal mg/dL (Negative) Urine Leukocyte Esterase Negative /uL (Negative) Urine RBC <1 /hpf (0 - 3) Urine Microscopic WBC 1 /HPF (0-3) Urine Squamous Epithelial Cells None seen /hpf (<5) Urine Bacteria None seen /hpf (None Seen) Urine Glucose Normal mg/dL (Normal) Assessment/Plan Assessment/Plan 69-year-old male with a known history of diabetes mellitus type 2, hypertension, congestive heart failure presented to the hospital with shortness of breaths and dyspnea on exertion found to have 1. Acute hypoxic respiratory failure secondary to acute CHF exacerbation 2. Acute CHF exacerbation with systolic dysfunction 3. Cardiomyopathy with the EF of 20 % 4. Hypertension 5. Severe anxiety disorder 6. Right-sided pneumonia -continue IV diuresis, IV antibiotics, -continue psych meds -physical therapy evaluation and treatment Plan discussed with: Patient Date of Service: Nov 28, 2024 Billing Provider: JOURDAN THOMAS MD Common Visit Codes: NOT BILLABLE JOURDAN THOMAS MD Nov 28, 2024 17:40
[2024-11-29] VITALS (19 sets, daily range): BP systolic 83–112; BP diastolic 54–86; PULSE 76–97; RESP 16–22; TEMP 97.3–97.9; O2SAT 91–100
[2024-11-29] MEDS: busPIRone HCL 10 MG TAB PO ONE (16:42)
--- NOTE | 2024-11-29 16:54 | DVHPN2 ---
Subjective Overnight events noted. The patient currently has a sitter. 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 Medications Current Medications Medications Dose Ordered Sig/Clay Route Start Time Stop Time Status Last Admin Dose Admin Acetaminophen/ Hydrocodone Bitart 1 tab Q4HP PRN PO 11/26/24 17:45 11/29/24 10:06 1 TAB Ondansetron HCl 4 mg Q4HP PRN IV 11/26/24 17:45 Docusate Sodium 100 mg BIDPRN PRN PO 11/26/24 17:45 Enoxaparin Sodium 30 mg DAILY SC 11/27/24 10:00 11/29/24 09:06 30 MG Acetaminophen 650 mg Q6HP PRN PO 11/26/24 17:45 Morphine Sulfate 2 mg Q4HPRN PRN IV 11/26/24 17:45 11/29/24 12:13 2 MG Nitroglycerin 0.4 mg Q5MINP PRN SL 11/26/24 17:45 Morphine Sulfate 2 mg Q30M PRN IV 11/26/24 17:45 Ceftriaxone Sodium 50 ml @ 100 mls/hr DAILY@09 IV 11/27/24 09:00 11/29/24 08:55 100 MLS/HR Azithromycin 250 ml @ 125 mls/hr DAILY IV 11/26/24 17:45 11/29/24 10:02 125 MLS/HR Ipratropium [place] 0.5 mg Q4HR NEB 11/26/24 22:00 11/29/24 14:00 0.5 MG Atorvastatin Calcium 20 mg HS PO 11/27/24 22:00 11/28/24 21:29 20 MG Gabapentin 1,200 mg TID PO 11/27/24 06:00 11/29/24 13:49 1,200 MG Metoprolol Succinate 50 mg DAILY PO 11/27/24 10:00 11/29/24 09:05 50 MG Diagnostic Test (Pha) 1 strip ACHS 11/27/24 07:00 11/29/24 16:46 1 STRIP Insulin Human Regular ACHS SC 11/27/24 07:00 11/29/24 12:20 4 UNITS Dextrose 50 ml UD PRN IV 11/27/24 02:15 Buspirone HCl 10 mg BID PO 11/29/24 22:00 Citalopram Hydrobromide 10 mg QAM PO 11/30/24 06:00 Laboratory Results Laboratory Tests 11/27/24 06:03 Urinalysis Test 11/26/24 16:01 Urine Color Light-yellow (Yellow) Urine Clarity Clear (Clear) Urine pH 6.5 (5.0-9.0) Urine Specific [place] 1.009 (1.001-1.035) Urine Protein Trace (Negative) H Urine Ketones Negative (Negative) Urine Blood Negative /uL (Negative) Urine Nitrite Negative (Negative) Urine Bilirubin Negative (Negative) Urine Urobilinogen Normal mg/dL (Negative) Urine Leukocyte Esterase Negative /uL (Negative) Urine RBC <1 /hpf (0 - 3) Urine Microscopic WBC 1 /HPF (0-3) Urine Squamous Epithelial Cells None seen /hpf (<5) Urine Bacteria None seen /hpf (None Seen) Urine Glucose Normal mg/dL (Normal) Assessment/Plan Assessment/Plan 69-year-old male with a known history of diabetes mellitus type 2, hypertension, congestive heart failure presented to the hospital with shortness of breaths and dyspnea on exertion found to have 1. Acute hypoxic respiratory failure secondary to acute CHF exacerbation 2. Acute CHF exacerbation with systolic dysfunction 3. Cardiomyopathy with the EF of 20 % 4. Hypertension 5. Severe anxiety disorder 6. Right-sided pneumonia -continue IV diuresis, IV antibiotics, -continue psych meds including Celexa, increase buspirone to 10 mg p.o. 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
[2024-11-29] MEDS: busPIRone HCL 10 MG TAB PO SCH (22:02)
[2024-11-30] VITALS (18 sets, daily range): BP systolic 105–138; BP diastolic 61–91; PULSE 70–92; RESP 18–20; TEMP 97.4–98; O2SAT 86–100
[2024-11-30] MEDS: MELATONIN 5 MG TAB PO PRN (02:22)
[2024-11-30] MEDS: DEXTROSE (50%) 50ML SYRG IV PRN (04:27)
[2024-11-30] MEDS: CITALOPRAM HYDROBR 20 MG TAB PO SCH (06:00)
[2024-11-30] MEDS: DOCUSATE SOD 100 MG CAP PO PRN (13:58)
--- NOTE | 2024-11-30 16:56 | DVHPN2 ---
Subjective Overnight events noted. The patient currently has a sitter. He is currently on antidepressants, willordered tele psych follow up for evaluation for inpatient psychiatric facility placement. 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 Medications Current Medications Medications Dose Ordered Sig/Clay Route Start Time Stop Time Status Last Admin Dose Admin Acetaminophen/ Hydrocodone Bitart 1 tab Q4HP PRN PO 11/26/24 17:45 11/30/24 11:24 1 TAB Ondansetron HCl 4 mg Q4HP PRN IV 11/26/24 17:45 Docusate Sodium 100 mg BIDPRN PRN PO 11/26/24 17:45 11/30/24 13:58 100 MG Enoxaparin Sodium 30 mg DAILY SC 11/27/24 10:00 11/30/24 09:55 30 MG Acetaminophen 650 mg Q6HP PRN PO 11/26/24 17:45 Morphine Sulfate 2 mg Q4HPRN PRN IV 11/26/24 17:45 11/30/24 14:02 2 MG Nitroglycerin 0.4 mg Q5MINP PRN SL 11/26/24 17:45 Morphine Sulfate 2 mg Q30M PRN IV 11/26/24 17:45 Ceftriaxone Sodium 50 ml @ 100 mls/hr DAILY@09 IV 11/27/24 09:00 11/30/24 08:27 100 MLS/HR Azithromycin 250 ml @ 125 mls/hr DAILY IV 11/26/24 17:45 11/30/24 09:54 125 MLS/HR Ipratropium [place] 0.5 mg Q4HR NEB 11/26/24 22:00 11/30/24 14:33 0.5 MG Atorvastatin Calcium 20 mg HS PO 11/27/24 22:00 11/29/24 22:01 20 MG Gabapentin 1,200 mg TID PO 11/27/24 06:00 11/30/24 13:59 1,200 MG Metoprolol Succinate 50 mg DAILY PO 11/27/24 10:00 11/30/24 09:56 50 MG Diagnostic Test (Pha) 1 strip ACHS 11/27/24 07:00 11/30/24 11:13 1 STRIP Insulin Human Regular ACHS SC 11/27/24 07:00 11/30/24 11:24 2 UNITS Dextrose 50 ml UD PRN IV 11/27/24 02:15 11/30/24 04:27 50 ML Buspirone HCl 10 mg BID PO 11/29/24 22:00 11/30/24 09:55 10 MG Citalopram Hydrobromide 10 mg QAM PO 11/30/24 06:00 11/30/24 08:19 10 MG Melatonin 5 mg HS PRN PO 11/30/24 02:15 11/30/24 02:22 5 MG Laboratory Results Laboratory Tests 11/27/24 06:03 Urinalysis Test 11/26/24 16:01 Urine Color Light-yellow (Yellow) Urine Clarity Clear (Clear) Urine pH 6.5 (5.0-9.0) Urine Specific [place] 1.009 (1.001-1.035) Urine Protein Trace (Negative) H Urine Ketones Negative (Negative) Urine Blood Negative /uL (Negative) Urine Nitrite Negative (Negative) Urine Bilirubin Negative (Negative) Urine Urobilinogen Normal mg/dL (Negative) Urine Leukocyte Esterase Negative /uL (Negative) Urine RBC <1 /hpf (0 - 3) Urine Microscopic WBC 1 /HPF (0-3) Urine Squamous Epithelial Cells None seen /hpf (<5) Urine Bacteria None seen /hpf (None Seen) Urine Glucose Normal mg/dL (Normal) Assessment/Plan Assessment/Plan 69-year-old male with a known history of diabetes mellitus type 2, hypertension, congestive heart failure presented to the hospital with shortness of breaths and dyspnea on exertion found to have 1. Acute hypoxic respiratory failure secondary to acute CHF exacerbation/acute COPD exacerbation, currently improved 2. Acute CHF exacerbation with systolic dysfunction 3. Cardiomyopathy with the EF of 20 % 4. Hypertension 5. Severe anxiety disorder 6. Right-sided pneumonia -continue IV diuresis, IV antibiotics, -continue psych meds including Celexa, increase buspirone to 10 mg p.o. b.i.d. -physical therapy evaluation and treatment -deep the sitter, tele psych re-evaluation for inpatient psych facility placement Plan discussed with: Patient, Other Date of Service: Nov 30, 2024 Billing Provider: JOURDAN THOMAS MD Common Visit Codes: [id number] INP/OBS CARE(MOD), NOT BILLABLE JOURDAN THOMAS MD Nov 30, 2024 16:56
[2024-11-30] MEDS ORDERED: MELATONIN 5 MG TAB PO SCH (22:00)
== END 2024-11-30 21:27 | disposition left against medical advice (07) | DRG 177 ==
LOC: EDBD 14:49 → ER 14:49 → OVERFLOW 17:14 → TELE-WESTW 21:47
PROVIDERS: ADMIT Internal Medicine; ATTEND Internal Medicine
DX: J15.69 Pneumonia due to other Gram-negative bacteria (principal); I50.23 Acute on chronic systolic (congestive) heart failure; J96.01 Acute respiratory failure with hypoxia; J44.0 Chronic obstructive pulmonary disease with (acute) lower respiratory infection; J44.1 Chronic obstructive pulmonary disease with (acute) exacerbation; I42.9 Cardiomyopathy, unspecified; I11.0 Hypertensive heart disease with heart failure; J15.9 Unspecified bacterial pneumonia; E11.9 Type 2 diabetes mellitus without complications; E78.5 Hyperlipidemia, unspecified; I25.10 Atherosclerotic heart disease of native coronary artery without angina pectoris; F41.9 Anxiety disorder, unspecified; F17.210 Nicotine dependence, cigarettes, uncomplicated; Z79.84 Long term (current) use of oral hypoglycemic drugs; Z82.49 Family history of ischemic heart disease and other diseases of the circulatory system; Z79.4 Long term (current) use of insulin; Z79.899 Other long term (current) drug therapy
CPT/HCPCS: 36415; 71045; 80048; 80053; 80307; 81001; 82962; 83880; 84484; 85025; 85379; 93005; 93306; 94640; 96365; 96375; 99291; G0378; J1815

== ENCOUNTER → 2025-01-15 | Outpatient (CLI) | payer OTHER, MEDICAID ==
[~2025-01-15] VITALS: Ht 190.5 cm; Wt 113.4 kg
[~2025-01-15] MED LIST changes: +BUSP5TAB78 PO; +INSU75IN2 SC; +LISI-706 PO; +LOPE-20 PO; +METF-929 PO; +METO-6 PO; +OXYC325T14 PO; +TEST1.62 TOP
[2025-01-15] MEDS: REGADENOSON 0.4 MG/5 ML SYRG IV ONE ×2 (14:05→14:11)
--- NOTE | 2025-01-16 07:40 | DVHSR ---
APPROVED REPORT Exam: Nuclear Stress Test Indication: Chest pain Stress Tech: Kim Ryan Ht: 6 ft 3 in Wt: 250 lbs BSA: 2.41 m2 BMI: 31.24 Medical History Medical History: SOB, Smoking, HTN, Diabetes, HYPERCHOLESTEROLEMIA Allergies: ADHESIVE Stress Test Details Stress Test: Pharmacologic stress testing performed using 0.4 mg of regadenoson per 5 mL given IV ov er 10 seconds. Reason for pharmacologic stress test: CHEST PAIN. HR Resting HR: 87 bpmMax Heart Rate (APMHR): 153.961290 bpm Max HR Achieved: 97 bpmTarget HR (85% APMHR): 130.824753 bpm % of APMHR: 63.40 Recovery HR: 93 bpm BP Resting BP: 104/76 mmHg Recovery BP: 108/83 mmHg ECG Resting ECG: SEE BASELINE EKG Clinical Reason for Termination: Completed protocol Nurse Comments Received patient from Nuclear Medicine. Patient is A&O x4 and on RA. FOR VS please refer back to st ress test assessment documentation. Patient is connected to campus monitor. See cardio-neuro proce dural notes for addtional details. PIV flushes well. Reviewed POC and patient verbalizes understand ing and consents to test. Lexiscan stress test performed per protocol. hydraulic technician administered the Cardiolite. Pat ient tolerated well and vitals returned to baseline. Transferred to Nuclear Medicine via wheelchair with tech in stable condition. Stress ECG Conclusion lvef 22% marked dilated LV severe systolic HF inferior fixed defect noted, mild lateral wall has decreased perfusion noted suspicious for ischemia in this territory NM EXAM: Myocardial Perfusion REST/STRESS Imaging Protocol: Rest Tc-99m/Stress Tc-99m 1 day Resting Data Rest SPECT myocardial perfusion imaging was performed in supine position 60 minutes following the int ravenous injection of 11.0 mCi of Tc-99m Sestamibi. Time of rest injection: 1215 Date: 01/15/2025 Time of rest imagin Date: 01/15/2025 Administration Route: IV Administration Site: Right Hand Pharmacologic Stress Pharmacologic stress test was performed by injecting Regadenoson 0.4 mg IV push followed by the intra venous injection of 30.0 mCi of Tc-99m Sestamibi. Time of stress injection: 14:08 Date: 01/15/2025 Time of stress imagin:08 Date: 01/15/2025 Administration Route: IV Administration Site: Right Hand Gated Stress SPECT was performed 60 minutes after stress injection. The images were gated to evaluate regional wall motion and calculate left ventricular ejection fracti on. Stress only was performed in the position. Nuclear Conclusion Nuclear Findings: positive for ischemia lvef 22% marked dilated LV severe systolic HF inferior fixed defect noted, mild lateral wall has decreased perfusion noted suspicious for ischemia in this territory
== END | disposition home or self-care (01) ==
LOC: XYW 11:11
PROVIDERS: ATTEND Internal Medicine
DX: I99.8 Other disorder of circulatory system (principal); R07.9 Chest pain, unspecified; I10 Essential (primary) hypertension; E11.9 Type 2 diabetes mellitus without complications; E78.00 Pure hypercholesterolemia, unspecified; R06.02 Shortness of breath
CPT/HCPCS: 78452; 93017; A9500; J2785

== ENCOUNTER 2025-05-08 11:20 | Inpatient (IN) | payer OTHER, MEDICAID ==
[~2025-05-08] VITALS: Ht 190.5 cm; Wt 113.0 kg
[2025-05-08 12:22] LABS: Hematocrit 43.6 % (41.0-53.0); Hemoglobin 14.4 g/dL (13.5-17.5); Mean Corpuscular Hemoglobin 26.2 pg (28.0-32.0); Mean Corpuscular Volume 79.2 fL (80.0-100.0); Nucleated Red Blood Cells % 0.1 %
--- NOTE | 2025-05-08 12:23 | DVH ---
EXAM: XY CHEST PORTABLE HISTORY: sob COMPARISON: XY CHEST PORTABLE on DOS: 11/26/24, XY CHEST PORTABLE on DOS: 10/15/24, XY CHEST PORTABLE on DOS: 12/17/23, US CHEST ULTRASOUND on DOS: 12/17/23, CT CT ANGIO CHEST CONTRAST on DOS: 12/16/23 TECHNIQUE: Portable upright AP view of the chest was performed. FINDINGS: No pneumothorax. There is interstitial prominence centrally and in the lung bases. The heart is en larged. There is thoracic degenerative disc disease. IMPRESSION: Cardiomegaly with interstitial prominence suggestive of CHF.
--- NOTE | 2025-05-08 12:24 | ED.PDOC ---
SOB-HPI HPI Comments 69 y/o M, with PMHx of CHF, HTN, DM, and HLD presents to the ED for CC of shortness of breath. Patient states, he has been experiencing symptoms of shortness of breath x1week. Patient reports, he has experienced similar symptoms in the past d/t pulmonary edema, endorses having a thoracentesis x1year ago to relieve symptoms. Patient denies chest pain, fever, cough, nasal congestion, or palpitations. No other symptoms or modifying factors are present at this time. Chief Complaint: Shortness of Breath Time Seen by MD: 12:00 Primary Care Provider: CALVIN Reviewed notes: Nurses Notes, Medications, Allergies Information Source: Patient Mode of Arrival: Wheelchair Severity: Moderate Timing: Days Duration: Since onset Context: Spontaneous Onset PE Risk Factors: None History of: CHF Prehospital treatment: None Modifying Factors: Nothing Associated Signs and Symptoms: None Past Medical History PAST MEDICAL HISTORY: Anxiety, CHF, DM, High Lipids, HTN Family History Family History: Reviewed,noncontributory to illness, Family hx of heart milly Social History Smoker: Cigarettes Alcohol: Denies ETOH Use Drugs: Marijuana Lives In: Home Constitutional: denies: chills, diaphoresis, fatigue, fever, malaise, sweats, weakness, others EENTM: denies: blurred vision, double vision, ear bleeding, ear discharge, ear drainage, ear pain, ear ringing, eye pain, eye redness, hearing loss, mouth pain, mouth swelling, nasal discharge, nose bleeding, nose congestion, nose pain, photophobia, tearing, throat pain, throat swelling, voice changes, others Respiratory: reports: shortness of breath; denies: cough, hemoptysis, orthopnea, SOB at rest, SOB with excertion, stridor, wheezing, others Cardiovascular: denies: chest pain, dizzy spells, diaphoresis, Dyspnea on exertion, edema, irregular heart beat, left arm pain, lightheadedness, palpitations, PND, syncope, others Gastrointestinal: denies: abdomen distended, abdominal pain, blood streaked bowels, constipated, diarrhea, dysphagia, difficulty swallowing, hematemesis, melena, nausea, poor appetite, poor fluid intake, rectal bleeding, rectal pain, vomiting, others Genitourinary: denies: burning, dysuria, flank pain, frequency, hematuria, incontinence, penile discharge, penile sore, pain, testicle pain, testicle swelling, urgency, others Neurological: denies: dizziness, fainting, headache, left sided numbness, left sided weakness, numbness, paresthesia, pre-existing deficit, right sided numbness, right sided weakness, seizure, speech problems, tingling, tremors, weakness, others Musculoskeletal: denies: back pain, gout, joint pain, joint swelling, muscle pain, muscle stiffness, neck pain, others Integumetry: denies: bruises, change in color, change in hair/nails, dryness, laceration, lesions, lumps, rash, wounds, others Allergic/Immunocompromised: denies: Difficulty Healing, Frequent Infections, Hives, Itching, others Hematologic/Lymphatic: denies: anemia, blood clots, easy bleeding, easy bruising, swollen glands, others Endocrine: denies: excessive hunger, excessive sweating, excessive thirst, excessive urination, flushing, intolerance to cold, intolerance to heat, unexplained weight gain, unexplained weight loss, others Psychiatric: denies: anxiety, bipolar disorder, depression, hopeless, panic disorder, schizophrenia, sleepless, suicidal, others All Other Systems: Reviewed and Negative Physical Exam General Appearance: Moderate Distress HEENT: Normal ENT Inspection, Pharynx Normal, TMs Normal Neck: Full Range of Motion, Non-Tender, Normal, Normal Inspection Respiratory: Other (Difficulty here lung sounds at the base) Cardiovascular: No Edema, No JVD, No Murmur, No Gallop, Normal Peripheral Pulses, Regular Rate/Rhythm Breast Exam: Deferred Gastrointestinal: No Organomegaly, Non Tender, No Pulsatile Mass, Normal Bowel Sounds, Soft Genitalia: Deferred Pelvic: Deferred Rectal: Deferred Extremities: No calf tenderness, Pedal edema Musculoskeletal : Apperance: Normal Neurologic: Alert, No Motor Deficits, No Sensory Deficits Cerebellar Function: NOT DONE Reflexes: NOT DONE Skin: Normal Color Peripheral Pulses: 3+ Radial (R), 3+ Radial (L) Lymphatic: No Adenopathy Was a procedure done? Was a procedure done?: No Differential Dx Differential Diagnosis: Anxiety, Asthma, Bronchitis, CHF, COPD, Pneumonia, S inusitis, Pharyngitis, URI X-Ray, Labs, Meds, VS Vital Signs Date Time Temp Pulse Resp B/P (MAP) Pulse Ox O2 Delivery O2 Flow Rate FiO2 05/08/25 11:28 97.6 89 24 122/86 98 97.6 05/08/25 11:23 89 Lab Test 05/08/25 12:03 Range/Units White Blood Count 7.3 4.4-10.8 10^3/uL Red Blood Count 5.51 4.5-5.90 10^6/uL Hemoglobin 14.4 13.5-17.5 g/dL Hematocrit 43.6 41.0-53.0 % Mean Corpuscular Volume 79.2 L 80.0-100.0 fL Mean Corpuscular Hemoglobin 26.2 L 28.0-32.0 pg Mean Corpuscular Hemoglobin Concent 33.1 32.0-36.0 g/dL Red Cell Distribution Width 19.8 H 11.8-14.3 % Platelet Count 188 140-450 10^3/uL Mean Platelet Volume 8.6 6.9-10.8 fL Neutrophils (%) (Auto) 70.6 37.0-80.0 % Lymphocytes (%) (Auto) 16.2 10.0-50.0 % Monocytes (%) (Auto) 10.5 0.0-12.0 % Eosinophils (%) (Auto) 1.6 0.0-7.0 % Basophils (%) (Auto) 1.1 0.0-2.0 % Neutrophils # (Auto) 5.2 1.6-8.6 10 ^3/uL Lymphocytes # (Auto) 1.2 0.4-5.4 10 ^3/uL Monocytes # (Auto) 0.8 0-1.3 10 ^3/uL Eosinophils # (Auto) 0.1 0-0.8 10 ^3/uL Basophils # (Auto) 0.1 0-0.2 10 ^3/uL Nucleated Red Blood Cells 0.1 % Sodium Level 141 136-145 mmol/L Potassium Level 4.2 3.5-5.1 mmol/L Chloride Level 109 H 98-107 mmol/L Carbon Dioxide Level 23 20-31 mmol/L Anion Gap 9 5-15 Blood Urea Nitrogen 18 9-23 mg/dL Creatinine 0.88 0.700-1.30 mg/dL Glomerular Filtration Rate Calc 94 >90 mL/min BUN/Creatinine Ratio 20.5 H 10.0-20.0 Serum Glucose 107 H 74-106 mg/dL Calcium Level 9.2 8.7-10.4 mg/dL Troponin I High Sensitivity 65 *H </=54 ng/L Patient alert. Placed on oxygen. History of pleural effusion. Answering questions. Cardiac marker elevated. Chest x-ray does show CHF. Was given Lasix. WBC within normal limits. Hemoglobin within normal limits. Was given Lovenox. Explained to the patient. Continue monitoring. Time of 1ST Reevaluation: 12:30 Reevaluation 1ST: Unchanged Patient Education/Counseling: Diagnosis, Treatment Family Education/Counseling: No Family Present SEPSIS Sepsis Screen Date sepsis recognized/suspect: May 08, 2025 Time Sepsis recognized/suspect: 1130 Recent Procedure: No On Antibiotic Therapy: No Respiratory Rate >20: No Heart Rate >90: Yes Temp<36 C (96.8 F) or >38.3 C: No SBP <90 or MAP <65 mmHG: No New Acute Mental Status Change: No Is the patient on CPAP, BIPAP,: No Physician Orders Electrocardigram (05/08/25 11:34) Chest Portable (05/08/25 11:51) Urinalysis (05/08/25 11:51) Furosemide Injection (Lasix Injection) (05/08/25 12:45) Vital Signs Date Time Temp Pulse Resp B/P (MAP) Pulse Ox O2 Delivery O2 Flow Rate FiO2 05/08/25 11:28 97.6 89 24 122/86 98 97.6 05/08/25 11:23 89 Laboratory Tests Test 05/08/25 12:03 White Blood Count 7.3 10^3/uL (4.4-10.8) Departure 1 Departure Time of Disposition: 12:44 Impression: Primary Impression: CHF (congestive heart failure) Qualified Codes: I50.43 - Acute on chronic combined systolic (congestive) and diastolic (congestive) heart failure Disposition: ADMITTED INPATIENT Admit to: Med Surg Condition: Guarded Critical Care Note Critical Care Time?: Yes (90 min-critical care time only) Stability Stability form required: No Heart Score Heart Score: Heart Score Response (Comments) Value History Slightly Suspicious 0 EKG Normal 0 Age >65 2 Risk Factors >3 or Hx ASHD 2 Troponin 1-2 x's Normal limit 1 Total 5 I personally scribed for ERIN RIBERA MD ([email or web address]) on 05/08/25 at 12:24. Electronically submitted by Kim Tanner [email or web address]). I personally scribed for ERIN RIBERA MD ([email or web address]) on 05/08/25 at 12:40. Electronically submitted by Kim Tanner [email or web address]). ERIN RIBERA MD May 08, 2025 12:24
[2025-05-08 12:28] LABS: Potassium 4.2 mmol/L (3.5-5.1); Sodium 141 mmol/L (136-145)
[2025-05-08 12:29] LABS: Anion Gap 9 (5-15); Calcium 9.2 mg/dL (8.7-10.4); Carbon Dioxide 23 mmol/L (20-31)
[2025-05-08 12:30] LABS: Chloride 109 mmol/L (98-107)
[2025-05-08 12:34] LABS: BUN/Creatinine Ratio 20.5 (10.0-20.0); Blood Urea Nitrogen 18 mg/dL (9-23)
[2025-05-08 12:35] LABS: Glucose 107 mg/dL (74-106)
[2025-05-08] MEDS ORDERED: FUROSEMIDE 40 MG/4 ML VIAL IV ONE (12:45)
[2025-05-08] MEDS ORDERED: ENOXAPARIN SOD 100 MG/1 ML SYRINGE SC ONE (12:45)
[2025-05-08] MEDS ORDERED: HYDROcodone-ACET 5/325MG TAB PO PRN (13:15)
[2025-05-08] MEDS ORDERED: NITROGLYCERIN 0.4 MG SL TAB SL PRN (13:15)
[2025-05-08] MEDS ORDERED: ONDANSETRON HCL 4 MG/2 ML VIAL IV PRN (13:15)
[2025-05-08] MEDS ORDERED: DEXTROSE (50%) 50ML SYRG IV PRN (13:15)
[2025-05-08] MEDS ORDERED: MORPHINE SULFATE INJ 2 MG/ml SYRG IV PRN (13:15)
--- NOTE | 2025-05-08 13:15 | DVHHP2 ---
History of Present Illness Reason for Visit: Shortness of breath History of Present Illness 69 y/o M, with PMHx of CHF, HTN, DM, and HLD presents to the ED for CC of shortness of breath. Patient states, he has been experiencing symptoms of shortness of breath x1week. Patient reports, he has experienced similar symptoms in the past d/t pulmonary edema, endorses having a thoracentesis x1year ago to relieve symptoms. Patient denies chest pain, fever, cough, nasal congestion, or palpitations. No other symptoms or modifying factors are present at this time. Past Medical History Anxiety, CHF, DM, High Lipids, HTN Family History: Hypertension Smoke: No ALCOHOL: occassional Lives: with Family Review of Systems Review of Systems Other review of systems reviewed normal Constitutional: No: Fever, Chills, Sweats, Weakness, Malaise, Other Allergies: Uncoded Allergies: adhesive (Adverse Reaction, Intermediate, Rash, 01/15/25) Medications Current Medications Medications Dose Ordered Sig/Clay Route Start Time Stop Time Status Last Admin Dose Admin Nitroglycerin 0.4 mg Q5MINP PRN SL 05/08/25 13:15 UNV Morphine Sulfate 2 mg Q30M PRN IV 05/08/25 13:15 UNV Furosemide 60 mg BIDD IV 05/08/25 18:00 UNV Potassium Chloride 20 meq BID PO 05/08/25 22:00 UNV Acetaminophen/ Hydrocodone Bitart 1 tab Q4HPRN PRN PO 05/08/25 13:15 UNV Ondansetron HCl 4 mg Q4HPRN PRN IV 05/08/25 13:15 UNV Atorvastatin Calcium 20 mg HS PO 05/08/25 22:00 UNV Tamsulosin HCl 0.4 mg DAILY@BREAKFAST PO 05/09/25 08:00 UNV Patient Own Medication 5 mg Q12HR PO 05/08/25 22:00 UNV Patient Own Medication 2 tab TID PO 05/08/25 14:00 UNV Exam Vital Signs Vital Signs Date Time Temp Pulse Resp B/P (MAP) Pulse Ox O2 Delivery O2 Flow Rate FiO2 05/08/25 11:28 97.6 89 24 122/86 98 97.6 Exam General Appearance: Moderate Distress HEENT: Normal ENT Inspection, Pharynx Normal, TMs Normal Neck: Full Range of Motion, Non-Tender, Normal, Normal Inspection Respiratory: Other (Difficulty here lung sounds at the base) Cardiovascular: No Edema, No JVD, No Murmur, No Gallop, Normal Peripheral Pulses, Regular Rate/Rhythm Breast Exam: Deferred Gastrointestinal: No Organomegaly, Non Tender, No Pulsatile Mass, Normal Bowel Sounds, Soft Extremities: No calf tenderness, Pedal edema Labs/Xrays Labs Test 05/08/25 12:03 Range/Units White Blood Count 7.3 4.4-10.8 10^3/uL Red Blood Count 5.51 4.5-5.90 10^6/uL Hemoglobin 14.4 13.5-17.5 g/dL Hematocrit 43.6 41.0-53.0 % Mean Corpuscular Volume 79.2 L 80.0-100.0 fL Mean Corpuscular Hemoglobin 26.2 L 28.0-32.0 pg Mean Corpuscular Hemoglobin Concent 33.1 32.0-36.0 g/dL Red Cell Distribution Width 19.8 H 11.8-14.3 % Platelet Count 188 140-450 10^3/uL Mean Platelet Volume 8.6 6.9-10.8 fL Neutrophils (%) (Auto) 70.6 37.0-80.0 % Lymphocytes (%) (Auto) 16.2 10.0-50.0 % Monocytes (%) (Auto) 10.5 0.0-12.0 % Eosinophils (%) (Auto) 1.6 0.0-7.0 % Basophils (%) (Auto) 1.1 0.0-2.0 % Neutrophils # (Auto) 5.2 1.6-8.6 10 ^3/uL Lymphocytes # (Auto) 1.2 0.4-5.4 10 ^3/uL Monocytes # (Auto) 0.8 0-1.3 10 ^3/uL Eosinophils # (Auto) 0.1 0-0.8 10 ^3/uL Basophils # (Auto) 0.1 0-0.2 10 ^3/uL Nucleated Red Blood Cells 0.1 % Sodium Level 141 136-145 mmol/L Potassium Level 4.2 3.5-5.1 mmol/L Chloride Level 109 H 98-107 mmol/L Carbon Dioxide Level 23 20-31 mmol/L Anion Gap 9 5-15 Blood Urea Nitrogen 18 9-23 mg/dL Creatinine 0.88 0.700-1.30 mg/dL Glomerular Filtration Rate Calc 94 >90 mL/min BUN/Creatinine Ratio 20.5 H 10.0-20.0 Serum Glucose 107 H 74-106 mg/dL Calcium Level 9.2 8.7-10.4 mg/dL Troponin I High Sensitivity 65 *H </=54 ng/L SEPSIS Sepsis Screen Date sepsis recognized/suspect: May 08, 2025 Time Sepsis recognized/suspect: 1130 Recent Procedure: No On Antibiotic Therapy: No Respiratory Rate >20: No Heart Rate >90: Yes Temp<36 C (96.8 F) or >38.3 C: No SBP <90 or MAP <65 mmHG: No New Acute Mental Status Change: No Is the patient on CPAP, BIPAP,: No Physician Orders Electrocardigram (05/08/25 11:34) Chest Portable (05/08/25 11:51) Urinalysis (05/08/25 11:51) B-Type Natriuretic Peptide (05/08/25 12:45) Troponin-I Hs (05/08/25 13:07) Troponin-I Hs (05/08/25 16:07) Drug Screen (05/08/25 13:08) Urinalysis (05/08/25 13:08) Admit (05/08/25 13:09) Cardiac Diet-2gna,Lofat,Lochol (05/08/25 Lunch) Chf Clinic Visit (05/08/25 13:09) Provide Chf D/C Instructions (05/08/25 13:09) Nitroglycerin Sublingual (Ntrostat Subli (05/08/25 13:15) Morphine Sulfate Injection (05/08/25 13:15) Stat Ekg For Chest Pain (05/08/25 13:09) Notify Md Of Changes From Base (05/08/25 13:09) [employer] Radio Operator For 24 Hours (05/08/25 13:09) Emergency Dysrhythmia Protocol (05/08/25 13:09) Rhythm Strips Once Every Shift (05/08/25 13:09) Oxygen By Nasal Cannula (05/08/25 13:09) Furosemide Injection (Lasix Injection) (05/08/25 18:00) Potassium Er Tablet (Klor-Con Tablet) (05/08/25 22:00) Hydrocodone-Acet 5/325mg Tab ([place] 5/32 (05/08/25 13:15) Ondansetron Hcl (Zofran) (05/08/25 13:15) Strict I&O (05/08/25 ) Strict I & O QSHIFT (05/08/25 13:09) Basic Metabolic Panel (05/08/25 13:09) Basic Metabolic Panel (05/09/25 04:00) Atorvastatin (Lipitor) (05/08/25 22:00) Tamsulosin Hydrochloride (Flomax) (05/09/25 08:00) (Nf) Buspirone Hcl (05/08/25 22:00) (Nf) Gabapentin (05/08/25 14:00) Vital Signs Date Time Temp Pulse Resp B/P (MAP) Pulse Ox O2 Delivery O2 Flow Rate FiO2 05/08/25 11:28 97.6 89 24 122/86 98 97.6 05/08/25 11:23 89 Laboratory Tests Test 05/08/25 12:03 White Blood Count 7.3 10^3/uL (4.4-10.8) Assessment/Plan Assessment/Plan Admit to telemetry floor. IV diuresis. Reason cardiac medications. Supportive care and treatment. Further clinical management per clinical course. However soon after patient admitted while waiting in the ER for bed availability patient apparently did not want to stay any longer and left against medical advice. Plan discussed with: Other My Orders Orders - MERVIN HINOJOSA MD Procedure Category Date Status Time Drug Screen LAB 05/08/25 Logged 13:08 Urinalysis LAB 05/08/25 Logged 13:08 Admit ADMIT 05/08/25 Transmitted 13:09 Cardiac DIET 05/08/25 Transmitted Diet-2gna,Lofat,Lochol Lunch Chf Clinic Visit [facility] 05/08/25 Logged 13:09 Provide Chf D/C ORDERS 05/08/25 Transmitted Instructions 13:09 Nitroglycerin PHA 05/08/25 Logged Sublingual (Ntrostat 13:15 Morphine Sulfate PHA 05/08/25 Logged Injection 13:15 Stat Ekg For Chest HOLLI 05/08/25 In Process Pain 13:09 Notify Of Changes HOLLI 05/08/25 In Process From Base 13:09 [employer] Radio Operator For HOLLI 05/08/25 In Process 24 Hours 13:09 Emergency Dysrhythmia [facility] 05/08/25 In Process Protocol 13:09 Rhythm Strips Once [facility] 05/08/25 In Process Every Shift 13:09 Oxygen By Nasal RT 05/08/25 Transmitted Cannula 13:09 Furosemide Injection PHA 05/08/25 Logged (Lasix Injection) 18:00 Potassium Er Tablet PHA 05/08/25 Logged (Klor-Con Tablet) 22:00 Hydrocodone-Acet PHA 05/08/25 Logged 5/325mg Tab ([place] 13:15 Ondansetron Hcl PHA 05/08/25 Logged (Zofran) 13:15 Strict I&O ED NURSING 05/08/25 Transmitted Strict I & O HOLLI 05/08/25 In Process 13:09 Basic Metabolic Panel LAB 05/08/25 Logged 13:09 Basic Metabolic Panel LAB 05/09/25 Verified 04:00 Atorvastatin (Lipitor) PHA 05/08/25 Transmitted 22:00 Tamsulosin PHA 05/09/25 Transmitted Hydrochloride (Flomax) 08:00 (Nf) Buspirone Hcl PHA 05/08/25 Transmitted 22:00 (Nf) Gabapentin PHA 05/08/25 Transmitted 14:00 Problem List: (1) Diastolic heart failure (2) Acute on chronic diastolic heart failure (3) Elevated troponin (4) Acute anxiety MERVIN HINOJOSA MD May 08, 2025 13:15
[2025-05-08 13:37] VITALS: BP 110/76; PULSE 92; RESP 16; TEMP 97.8; O2SAT 93
[2025-05-08] MEDS ORDERED: PATIENTS OWN MEDICATION (Gabapentin 2 TAB) PO SCH (14:00)
[2025-05-08] MEDS ORDERED: GABAPENTIN 300 MG CAP PO SCH ×2 (14:00)
[2025-05-08] MEDS ORDERED: ACCU-CHEK COMFORT CURVE STRIP VI SCH (17:00)
[2025-05-08] MEDS ORDERED: InsuLIN REG 1unit/0.01ml Soln (100units/ml) SC SCH ×2 (17:00→22:00)
[2025-05-08] MEDS ORDERED: FUROSEMIDE 100 MG/10ML VIAL IV SCH (18:00)
[2025-05-08] MEDS ORDERED: PATIENTS OWN MEDICATION (Buspirone Hcl 5 MG) PO SCH (22:00)
[2025-05-08] MEDS ORDERED: ATORVASTATIN 20 MG TAB PO SCH (22:00)
[2025-05-08] MEDS ORDERED: POTASSIUM CHL 20 Meq TABLET PO SCH (22:00)
[2025-05-09] MEDS ORDERED: TAMSULOSIN HYDROCHLORIDE 0.4 MG CAP PO SCH (08:00)
--- NOTE | 2025-05-11 12:06 | ECG ---
[facility] Test Date: 2025-05-08 Test Time: 11:23:13 Pat Name: GUANAKITO ALARCON Department: ED Room: [address] [place] [address] A Gender: M Sheriff: CLAUDIO : 1955 Requested By: ERIN RIBERA Order Number: [id number] Reading MD: Cordell Jay Measurements Intervals [place] Rate: 89 P: 80 NV: 171 QRS: 59 QRSD: 97 T: -85 QT: 396 QTc: 482 Interpretive Statements Sinus rhythm Consider left atrial enlargement Borderline low voltage, extremity leads Borderline repolarization abnormality Borderline prolonged QT interval Baseline wander in lead(s) II,III,aVL,aVF Electronically Signed On 05-12-2025 16:20:14 PDT by Cordell Jay Please click the below link to view image of tracing.
== END 2025-05-08 14:02 | disposition left against medical advice (07) | DRG 291 ==
LOC: ER 11:20 → OVERFLOW 13:09
PROVIDERS: ADMIT Hospitalist; ATTEND Hospitalist
DX: I11.0 Hypertensive heart disease with heart failure (principal); I50.43 Acute on chronic combined systolic (congestive) and diastolic (congestive) heart failure; F41.9 Anxiety disorder, unspecified; E11.9 Type 2 diabetes mellitus without complications; F17.210 Nicotine dependence, cigarettes, uncomplicated; E78.5 Hyperlipidemia, unspecified; Z53.29 Procedure and treatment not carried out because of patient's decision for other reasons; Z91.048 Other nonmedicinal substance allergy status
CPT/HCPCS: 36415; 71045; 80048; 83880; 84484; 85025; 93005; 99291; 99292; G0378; G0463